=== PATIENT | female | born 1940 | race Caucasian/White ===

== ENCOUNTER 2024-11-28 10:30 | Inpatient (IN) | payer MEDICARE, MEDICAID, SELFPAY ==
[2024-11-28] VITALS (12 sets, daily range): BP systolic 91–157; BP diastolic 50–88; PULSE 61–107; RESP 16–20; TEMP 36.4–36.8; O2SAT 94–99; BMI 20.6
--- NOTE | 2024-11-28 10:48 | EDNOTE_ITS ---
ED General RME/HPI General Chief complaint: General Adult/Misc Complain Stated complaint: EVALUATION; UNDER CONSERVATORSHIP Time Seen by Provider: 11/28/24 11:03 Arrival date/time: 11/28/24 10:30 RME / HPI RME / HPI narrative: 84 year old female present to the ED BIBA from home for evaluation. Per medics, neighbors were at patients residence and noted her home was in disarray. Reportedly while cleaning out the moldy food from the patients home, the patient went out and ate it from the trash can. While in the ED patient has no complaints and notes I don't know why they brought me here . Denies fever, chills, sweating. Denies chest pain, cough, shortness of breath. Denies nausea, vomiting, diarrhea, constipation. Denies dysuria, urinary frequency and urgency. Related Data Home Medications ?Medication ?Instructions ?Recorded ?Confirmed calcium 600 mg (as 1 tab PO QDAY 01/18/19 11/30/24 carbonate)-vitamin D3 20 mcg (800 unit) tablet (Caltrate with Vitamin D3) [id number] 8 mg-folic 400 1 tab PO QDAY 01/18/19 11/30/24 mcg-K 50 mcg-lutein 300 mcg tablet (Centrum Silver Women) Previous Rx's ?Medication ?Instructions ?Recorded potassium chloride 8 mEq 8 meq PO QDAY #14 caps 05/10/24 capsule,extended release loperamide 1 mg/7.5 mL oral liquid 2 mg (15 mL) PO Q2H PRN loose 06/13/24 (Imodium A-D) stool #120 mL loperamide 2 mg capsule (Imodium 2 mg PO Q6H PRN loose stool #14 06/18/24 A-D) caps Allergies Allergy/AdvReac Type Severity Reaction Status Date / Time Coos And Derivatives Allergy Severe Hives Verified 06/18/24 16:37 isopropyl alcohol Allergy Severe Unconscious Verified 06/18/24 16:37 nut - unspecified Allergy Severe CLOSE UP Verified 06/18/24 16:37 THROAT strawberry Allergy Severe Hives Verified 06/18/24 16:37 tetracycline Allergy Severe Hives Verified 06/18/24 16:37 Review of Systems Review of Systems Narrative Review of Systems: GEN: No fever, no chills, no weight loss EYES: No discharge, no visual changes, no pain HEENT: No ear pain, no congestion, no sore throat PULM: No shortness of breath, no cough, no congestion CV: No chest pain, no dyspnea on exertion, no palpitations GI: No nausea, no vomiting, no diarrhea, no pain, no constipation : No frequency, no urgency, no dysuria MUSC/SKEL: No joint pain, no back pain SKIN: No rash PSYCH: No hallucinations, no depression HEME/LYMPH: No easy bleeding or bruising tendencies NEURO: No weakness, no headache Past Medical History Past Medical History NEUROLOGIC: Positive Seizures CARDIAC: Negative Cardiac Disorders or Congestive Heart Failure RESPIRATORY: Positive Asthma GASTROINTESTINAL: Positive Gastrointestinal Disorders, Gastrointestinal Bleed and Ulcer GENITOURINARY: Negative Genitourinary Disorders or Renal Disease REPRODUCTIVE: Positive Previous Pregnancies MUSCULOSKELETAL: Positive Musculoskeletal Disorders, Osteoporosis and Fractures ENT: Positive Cataracts ENDOCRINE: Negative Endocrine Disorders, Diabetes Mellitus Type 1 or Diabetes Mellitus Type 2 HEMATOLOGIC: Negative Blood Disorders or Sickle Cell Disease OTHER HISTORY: Positive Falls and Chicken Pox Family History FAMILY HISTORY: Positive Family Surgery Surgical History SURGICAL: Positive Open Reduction Internal Fixation and Hysterectomy Social History SMOKING STATUS: Never smoker SUBSTANCE USE: does not use ED Exam Narrative Physical exam: GENERAL APPEARANCE:? alert and oriented x 4, well-developed, well-nourished, no acute distress HEENT: normocephalic, atraumatic NECK: supple LUNGS: no respiratory distress, normal effort HEART: good peripheral perfusion ABDOMEN: non distended EXTREMITIES:? atraumatic NEUROLOGIC: awake; alert and oriented x4; cranial nerves II-XII grossly intact PSYCHIATRIC:? appropriate mood and affect SKIN: warm, dry, normal color; no rashes Course Course Course Narrative: 1045: glass bead maker reports the patient is conserved by the [facility] and the [facility] have made contact with our social media editor. They are requesting the patient be placed into a nursing facility. 1800: Patient was signed out to Dr. Hoyt. Past medical, surgical, social and family history reviewed. Vitals and home medications reviewed. Results and treatment plan discussed. They will assume the care of the patient at this time and will follow the patient. Quality Measures none Orders Category Date Time Status Diet Regular Diet 11/29/24 Dinner Completed Diet Regular Diet 12/01/24 Breakfast Active CBC Stat Lab 11/28/24 11:55 Completed CMP [Comprehensive Metabolic Panel] Stat Lab 11/28/24 11:55 Completed TSH [Thyroid Stimulating Hormone] Stat Lab 11/28/24 11:55 Completed UA, C/S IF [Urinalysis, C/S if Indicated] Stat Lab 11/28/24 12:51 Completed Vital Signs Vital signs: Vital Signs Temperature 97.5 F 11/28/24 10:33 Pulse Rate 86 11/28/24 10:33 Respiratory Rate 19 11/28/24 10:33 Blood Pressure 157/87 H 11/28/24 10:33 Pulse Oximetry (%) 98 11/28/24 10:33 Oxygen Delivery Method Room Air 11/28/24 10:33 Pulse ox is 98% on room air which is adequate. [facility] Patient data External records reviewed:: [facility] previous records (I reviewed ED visit on 07/31/2024) and EMS form Clinical information provided by:: patient and EMS Social determinants that could affect healthcare access:: none Patient has the following chronic illnesses:: Osteoporosis How is presenting disease/condition affected by chronic disease/condition?: u neffected by Evaluation data The following diagnostics were reviewed and interpreted by me:: lab results Lab and/or radiology exams considered but not ordered:: None Interpretation Summary: UA shows no infection CMP within normal limits CBC within normal limits Medications Medications considered but not ordered:: None Medication administrations:: see above if any Consultations Consultation(s) initiated? (list below): No Diagnosis Differential Diagnosis ED Complaint MDM: Encounter for medical screening exam, anemia, dehydration Most likely diagnosis given after review of the tests above:: As noted below. Admission Indicated Admission indicated?: not indicated Explain why admission is indicated or not indicated:: No final disposition plan at this time, still pending diagnostic tests. Patient signout to the night time nanny provider. Admission Request Was there a request for admission?: No Disposition Plan Disposition Plan: other (specify) (Patient signout to the night time nanny provider. ) Medical Decision Making Differential Diagnosis Differential Diagnosis: Encounter for medical screening exam, anemia, dehydration Lab Data 11/28/24 11:55 11/28/24 11:55 Labs: Lab Results 11/28/24 11/28/24 Range/Units 11:55 12:51 WBC 5.9 (3.6-11.0) Thou/mm3 RBC 5.15 (4.00-5.20) Miln/mm3 Hgb 15.3 (12.0-16.0) g/dL Hct 44.8 (36.0-46.0) % MCV 87 (80-100) fL MCH 29.7 (25.0-35.0) pg MCHC 34.2 (31.0-37.0) g/dl RDW Std Deviation 41.1 (36.4-46.3) fL Plt Count 176 (140-440) Thou/mm3 Neut % (Auto) 66 (37-80) % Lymph % (Auto) 22 (10-50) % Trinity % (Auto) 8 (0-12) % Eos % (Auto) 4 (0-10) % Baso % (Auto) 1 (0-2.5) % Neut # (Auto) 3.9 (1.8-7.7) Thou/mm3 Lymph # (Auto) 1.3 (1.0-4.8) Thou/mm3 Trinity # (Auto) 0.5 (0.0-0.8) Thou/mm3 Eos # (Auto) 0.2 (0.0-0.5) Thou/mm3 Baso # (Auto) 0.0 (0.0-0.2) Thou/mm3 Immature Gran # (Auto) 0.00 (0.00-0.00) Thou/mm3 Absolute Nucleated RBC 0.00 (0.00-0.00) Thou/mm3 Immature Gran % 0 (0-0) % Nucleated RBC % 0 (0) /100 WBC Sodium 140 (136-145) mMol/L Potassium 4.2 (3.4-5.1) mMol/L Chloride 105 (98-107) mMol/L Carbon Dioxide 27.0 (20.0-31.0) mMol/L Anion Gap 8 (7-16) BUN 15 (9-23) mg/dL Creatinine 1.0 (0.6-1.3) mg/dL Estim Creat Clear Calc 39.7 L (>60) mL/min eGFR 56 L (60 - ) See Note BUN/Creatinine Ratio 15 (12-20) Ratio Glucose 112 H (74-106) mg/dL Calculated Osmolality 281 (275-295) Calcium 10.2 (8.3-10.6) mg/dL Corrected Calcium 10.2 H (8.5-10.1) mg/dL Total Bilirubin 0.5 (0.3-1.2) mg/dL AST 25 (0-34) U/L ALT 12 (10-49) U/L Alkaline Phosphatase 81 (46-116) U/L Total Protein 6.7 (5.7-8.2) gm/dL Albumin 4.1 (3.4-4.8) gm/dL Globulin 2.6 (2.3-3.5) gm/dL Albumin/Globulin Ratio 1.6 (1.2-2.2) TSH 1.82 (0.55-4.78) uIU/mL Ur Collection Type Clean Catch Urine Color Colorless A (Lt Yel-Yel) Urine Clarity Clear (Clear/Hazy) Urine pH 6.0 (5.0-7.0) Ur Specific [place] 1.008 (1.001-1.035) Urine Protein Negative (Neg - Trace) Urine Glucose (UA) Negative (Negative) Urine Ketones Negative (Negative) Urine Blood Negative (Negative) Urine Nitrite Negative (Negative) Urine Bilirubin Negative (Negative) Urine Urobilinogen (Auto) Negative (0.0-1.0) mg/dL Ur Leukocyte Esterase Negative (Negative) Urine RBC 1 (0-3) /hpf Urine WBC 1 (0-5) /hpf Ur Squamous Epith Cells < 1 (0-5) /hpf Urine Bacteria None (None) Ur Culture Indicated? Not Indicated Discharge Plan Prescriptions/Referrals Prescriptions/Med Rec: No Action Centrum Silver Women 8 mg iron-400 mcg-300 mcg Tablet 1 tab PO QDAY calcium carbonate-vitamin D3 [Caltrate with Vitamin D3] 600 mg(1,500mg) -800 unit Tablet 1 tab PO QDAY potassium chloride 8 mEq capsule, extended release 8 meq PO QDAY Qty: 14 0RF loperamide [Imodium A-D] 1 mg/7.5 mL liquid 2 mg PO Q2H PRN (Reason: loose stool) Qty: 120 0RF Rx Instructions: do not exceed 16 mg per 24 hrs loperamide [Imodium A-D] 2 mg capsule 2 mg PO Q6H PRN (Reason: loose stool) Qty: 14 0RF Referrals: Eddi Paulson MD [Primary Care Provider] - In 1 week Patient/Caregiver Discharge Instructions Print Language: Stateless
--- NOTE | 2024-11-28 10:53 | PC.CC ---
Addendum entered by Jacqueline Doherty 11/29/24 10:42: Jayashree Man sent a referral to the following SNF: [facility] [place] [facility] [place] at [facility] Care Feliberto Garcia Addendum entered by Jacqueline Doherty 11/29/24 08:20: [id number] Jacqueline VAZQUEZ spoke to fernando and informed her that we have been unsuccessful in finding SNF placement for the patient. Jayashree reported she will be working on their search today and including me in the emails to different facilities. Addendum entered by Jacqueline Doherty 11/28/24 16:48: 1648 [facility] is considering patient pending insurance authorization. Addendum entered by Jacqueline Doherty 11/28/24 13:56: 1342 submitted referral via [facility] to SNF in and out of area for placement. Addendum entered by Jacqueline Doherty 11/28/24 12:02: 12:03 Jacqueline VAZQUEZ spoke with Jayashree king who reports we can place patient at any SNF but they would like to be notified where the patient is placed. Original Note: Patient was BIBA from home is conserved by [facility]-Conservator is Jayashree [phone]. Patient's primary care provider is Dr. Francois, per APS patient is not on any medications. [facility] Conservator reports the patient's dementia has progressed and would like for patient to be placed at a Prison Facility.
[2024-11-28 12:07] LABS: Basophils % (Auto) 1 % (0-2.5); Eosinophils # (Auto) 0.2 Thou/mm3 (0.0-0.5); Eosinophils % (Auto) 4 % (0-10); Hematocrit 44.8 % (36.0-46.0); Hemoglobin 15.3 g/dL (12.0-16.0); Immature Granulocytes % (Auto) 0 % (0-0); Lymphocytes # (Auto) 1.3 Thou/mm3 (1.0-4.8); Lymphocytes % (Auto) 22 % (10-50); Mean Corpuscular HGB Conc 34.2 g/dl (31.0-37.0); Mean Corpuscular Hemoglobin 29.7 pg (25.0-35.0); Mean Corpuscular Volume 87 fL (80-100); Monocytes # (Auto) 0.5 Thou/mm3 (0.0-0.8); Monocytes % (Auto) 8 % (0-12); Neutrophils # (Auto) 3.9 Thou/mm3 (1.8-7.7); Neutrophils % (Auto) 66 % (37-80); Nucleated Red Blood Cell % 0 /100 WBC (0); Platelet Count 176 Thou/mm3 (140-440); RDW Standard Deviation 41.1 fL (36.4-46.3); Red Blood Count 5.15 Miln/mm3 (4.00-5.20); White Blood Count 5.9 Thou/mm3 (3.6-11.0)
[2024-11-28 12:27] LABS: Alanine Aminotransferase 12 U/L (10-49); Albumin, Serum 4.1 gm/dL (3.4-4.8); Albumin/Globulin Ratio 1.6 (1.2-2.2); Alkaline Phosphatase 81 U/L (46-116); Anion Gap 8 (7-16); Aspartate Amino Transferase 25 U/L (0-34); BUN/Creatinine Ratio 15 Ratio (12-20); Bilirubin,Total 0.5 mg/dL (0.3-1.2); Blood Urea Nitrogen 15 mg/dL (9-23); Calcium 10.2 mg/dL (8.3-10.6); Calcium (Corrected) 10.2 mg/dL (8.5-10.1); Chloride 105 mMol/L (98-107); Estimated Creatinine Clearance 39.7 mL/min (>60); Globulin 2.6 gm/dL (2.3-3.5); Glucose 112 mg/dL (74-106); Osmolality,Calculated 281 (275-295); Potassium 4.2 mMol/L (3.4-5.1); Sodium 140 mMol/L (136-145); Thyroid Stimulating Hormone 1.82 uIU/mL (0.55-4.78); Total Protein 6.7 gm/dL (5.7-8.2); eGFR 56 See Note
[2024-11-28 13:02] LABS: Collection Type, Urine Clean Catch
[2024-11-28 13:13] LABS: Bilirubin,Urine Negative (Negative); Blood,Urine Negative (Negative); Clarity,Urine Clear (Clear/Hazy); Color,Urine Colorless (Lt Yel-Yel); Culture Indicated,Urine Not Indicated; Glucose, Urine Negative (Negative); Ketones,Urine Negative (Negative); Leukocyte Esterase,Urine Negative (Negative); Nitrite,Urine Negative (Negative); Protein,Urine Negative (Neg - Trace); RBC,Urine 1 /hpf (0-3); Specific Gravity,Urine 1.008 (1.001-1.035); Squamous Epithelial Cell,Urine < 1 /hpf (0-5); Urobilinogen,Urine Negative mg/dL (0.0-1.0); WBC,Urine 1 /hpf (0-5)
--- NOTE | 2024-11-28 20:00 | PC.NURSE ---
Pt given a sandwch chips and water. Pt calm and cooperative. will monitor ppt for needs as needed.
--- NOTE | 2024-11-28 20:54 | PD.EDADDENDU ---
Emergency Room Addendum <Shraddha French - Last Filed: 11/28/24 22:06> Addendum Narrative: 1800: Care assumed from Dr. Singleton, the previous shift emergency physician. Past medical, surgical, social and family history reviewed. Vitals and home medications reviewed. I will assume the care of the patient at this time. Please refer to the emergency department record for history and examination from initial visit.? Physical exam by me shows patient under no acute distress at this time. 0600: Patient was signed out to Dr. Singleton. Past medical, surgical, social and family history reviewed. Vitals and home medications reviewed. Results and treatment plan discussed. They will assume the care of the patient at this time and will follow the patient. <Elizabethmane Anne - Last Filed: 11/29/24 04:17> Addendum Narrative: 1800: Care assumed from Dr. Singleton, the previous shift emergency physician. Past medical, surgical, social and family history reviewed. Vitals and home medications reviewed. I will assume the care of the patient at this time. Please refer to the emergency department record for history and examination from initial visit.? Physical exam by me shows patient under no acute distress at this time. OBSERVATION NOTE: The patient was placed in ED observation care at 11/28/24 at 1800 hours. The patient was placed in ED observation care because of pending SNF placement. The patients past medical history, social history, and family history were reviewed. The plan of care will include serial examinations. 0600: Patient was signed out to Dr. Singleton. Past medical, surgical, social and family history reviewed. Vitals and home medications reviewed. Results and treatment plan discussed. They will assume the care of the patient at this time and will follow the patient. At this time, observation has ended.
[2024-11-29] VITALS (18 sets, daily range): BP systolic 103–138; BP diastolic 56–93; PULSE 55–94; RESP 16–18; TEMP 36.3–36.8; O2SAT 95–97
--- NOTE | 2024-11-29 05:58 | EDNOTE_ITS ---
Emergency Room Addendum Addendum Narrative: 0600: Care assumed from Dr. Hoyt, the previous shift emergency physician. Past medical, surgical, social and family history reviewed. Vitals and home medications reviewed. I will assume the care of the patient at this time, pending SNF placement. Please refer to the emergency department record for history and examination from initial visit.? The patient was placed in ED observation care at 11/29/2024 at 0600 hours. The patient was placed in ED observation care, pending long-term placement. The patients past medical history, social history, and family history were reviewed. The plan of care will include serial examinations. Physical exam by me shows patient under no acute distress at this time. 1800: Patient was signed out to Dr. Whyte. Past medical, surgical, social and family history reviewed. Vitals and home medications reviewed. Results and treatment plan discussed. They will assume the care of the patient at this time and will follow the patient, pending SNF placement.
--- NOTE | 2024-11-29 18:02 | PD.EDADDENDU ---
Emergency Room Addendum Addendum Narrative: 1800: Care assumed from Dr. Singleton the previous shift emergency physician. Past medical, surgical, social and family history reviewed. Vitals and home medications reviewed. Results and treatment plan discussed. I will assume the care of the patient at this time and will follow the patient, pending SNF placement. Please refer to the emergency department record for history and examination from initial visit. The patient was placed in ED observation care at 11/29/24 at 1800 hours. The patient was placed in ED observation care because of pending authorization for SNF placement. The patients past medical history, social history, and family history were reviewed. 0600: Care signed out to Dr. Singleton (emergency physician). Past medical, surgical, social and family history reviewed. Vitals and home medications reviewed. Results and treatment plan discussed. They will assume the care of the patient at this time and will follow the patient, pending SNF placement. At this time, observation has ended.
--- NOTE | 2024-11-29 19:39 | PC.NURSE ---
First contact with pt in Room 5, pt in gown, connected to bedside monitoring coordinator, whiteboard updated, call light within reach.
--- NOTE | 2024-11-29 19:42 | PC.NURSE ---
Pt provided with a dinner tray, observed feeding self independently.
[2024-11-30] VITALS (10 sets, daily range): BP systolic 103–143; BP diastolic 56–94; PULSE 61–90; RESP 14–17; TEMP 36.6–37.2; O2SAT 95–97
--- NOTE | 2024-11-30 06:01 | PD.EDADDENDU ---
Emergency Room Addendum Addendum Narrative: 0600: Care assumed from Dr. Whyte, the previous shift emergency physician. Past medical, surgical, social and family history reviewed. Vitals and home medications reviewed. I will assume the care of the patient at this time, pending SNF placement. The patient was placed in ED observation care at 11/30/2024 at 0600 hours. The patient was placed in ED observation care, pending SNF placement. The patients past medical history, social history, and family history were reviewed. The plan of care will include serial examinations. Please refer to the emergency department record for history and examination.? While in ED observation the patient will have access to water, food, and personal hygiene. If the patient takes home medication(s), they will be continued in ED observation. Physical exam by me shows patient under no acute distress at this time. 1800: Patient was signed out to Dr. Whyte. Past medical, surgical, social and family history reviewed. Vitals and home medications reviewed. Results and treatment plan discussed. They will assume the care of the patient at this time and will follow the patient, pending placement.
--- NOTE | 2024-11-30 08:41 | PC.NURSE ---
Avasure placed at bedside to monitor pt for pt safety
--- NOTE | 2024-11-30 13:30 | PC.NURSE ---
pt given lunch tray; pt ate 100% of lunch tray.
--- NOTE | 2024-11-30 16:19 | PC.NURSE ---
SKIN CHECK DONE ON PT; NO PRESSURE INJURY NOTED ON ANY BONY PROMINENCES ON PT.
--- NOTE | 2024-11-30 18:31 | PD.EDADDENDU ---
Emergency Room Addendum <Casimiro Whyte MD - Last Filed: 11/30/24 18:31> Addendum Narrative: 1800 Care assumed by previous shift provider. Past medical, surgical, social and family history reviewed. Vitals and home medications reviewed. Results and treatment plan discussed. I will assume the care of the patient at this time and will follow the patient, pending final disposition. <Patrick Wong - Last Filed: 12/01/24 04:54> Addendum Narrative: 1800 Care assumed by previous shift provider. Past medical, surgical, social and family history reviewed. Vitals and home medications reviewed. Results and treatment plan discussed. I will assume the care of the patient at this time and will follow the patient, pending final disposition. 0000 Patient re-evaluated by me. Vitals reviewed. Stable. 0400 Patient re-evaluated by me. Vitals reviewed. Stable. 0600 Care signed out to Dr. Morris. Past medical, surgical, social and family history reviewed. Vitals and home medications reviewed. Results and treatment plan discussed. They will assume the care of the patient at this time and will follow the patient, pending SNF placement.
--- NOTE | 2024-11-30 22:36 | PC.NURSE ---
Pt resting quietly since my arrival. conversing and joking around. pt offered and given pudding, milk and crackers. [employer] monitor is in room for safty observation.
[2024-12-01] VITALS (9 sets, daily range): BP systolic 92–132; BP diastolic 51–75; PULSE 64–83; RESP 15–18; TEMP 36.6–36.8; O2SAT 92–99
--- NOTE | 2024-12-01 06:22 | PC.NURSE ---
PT SLEPT THROUGHOUT THE NIGHT WITH NO INCIDENTS. ATTEMPTED TO CHANGE PTS BRIEF OR AMBULATE TO BATHROOM THIS AM BUT PATIENT DENIED. PT CONTINUING WITH [employer] MONITOR TO ENSURE PATIENT SAFETY. STILL AWAITING FOR INSURANCE AUTH FOR SNF PLACEMENT. WILL CONTINUE WITH PLAN OF CARE.
--- NOTE | 2024-12-01 07:44 | PD.EDADDENDU ---
Emergency Room Addendum Addendum Narrative: 0600: Care assumed from Dr. Whyte, the previous shift emergency physician. Past medical, surgical, social and family history reviewed. Vitals and home medications reviewed. I will assume the care of the patient at this time, pending SNF placement. The patient was placed in ED observation care at 12/01/2024 at 0600 hours. The patient was placed in ED observation care, pending SNF placement. The patients past medical history, social history, and family history were reviewed. The plan of care will include serial examinations. Please refer to the emergency department record for history and examination.? While in ED observation the patient will have access to water, food, and personal hygiene. If the patient takes home medication(s), they will be continued in ED observation. Physical exam by me shows patient under no acute distress at this time. 1800: Patient was signed out to Dr. Whyte. Past medical, surgical, social and family history reviewed. Vitals and home medications reviewed. Results and treatment plan discussed. They will assume the care of the patient at this time and will follow the patient, pending SNF placement.
--- NOTE | 2024-12-01 08:59 | PC.CC ---
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 From SS notes, pt is conserved by [facility]-pt with hx of advance dementia. Pts home has been condemned by [facility] as unlivable. Inquiry has been uploaded to [employer] with the following outcome: [facility] declined no bed available [facility]-considering, though pt lacks firm D/c plan [facility]-no response [facility]-no response [facility] [place]-declined [facility]-no response [facility]-declined, unable to meet needs [facility]-declined [facility]-declined [facility]-no response [facility] [place]-declined [place]-no response [place]-no response [place]-no response [facility] [place]-no response [place]-no response [facility]-no response Ravi--no response [address]-no response [facility] response [facility]-declined [place] [facility]-declined [facility]-no response [facility]-no response [facility]-declined [facility] [place]-no response [facility]-no response [facility]-no response [place]-no response [facility] [place]-no response [place]-has accepted pending 3 midnight stay [place]-declined [place]-declined [facility]-no response [employer]-no response [facility]-declined [facility] [place]-declined [place]- no response [place]-no response [facility]-no response [facility]-no response [place]-no response [place]-no response [facility]-no response [facility]-no response Juan Starks [facility]-declined [facility]-declined [place]-declined [facility]-declined [facility]-no response [facility]-declined [place]-declined [place]-declined [facility]-declined Jackie PA-declined [place]-declined [place]-no response [facility]-considering
--- NOTE | 2024-12-01 09:00 | PC.NURSE ---
pt resting in bed in no apparent distress at this time. pt denies pain or discomfort. will continue to monitor
--- NOTE | 2024-12-01 17:06 | PC.NURSE ---
PATIENT RESTING IN BED, DENIES PAIN OR DISCOMFORT. PATIENT STATES SHE IS OKAY AND DOES NOT NEED ANYTHING AT THIS TIME.
--- NOTE | 2024-12-01 18:20 | PC.NURSE ---
PATIENT ASSISTED TO RESTROOM, PATIENT AMBULATING WITH USE OF CANE AND ONE PERSON ASSIST.
--- NOTE | 2024-12-01 22:11 | PD.EDADDENDU ---
Emergency Room Addendum Addendum Narrative: 1800: Care assumed from Dr. Morris, the previous shift emergency physician. Past medical, surgical, social and family history reviewed. Vitals and home medications reviewed. I will assume the care of the patient at this time, pending SNF placement. The patient continues in ED observation care. The patient was placed in ED observation care, pending SNF placement. The patients past medical history, social history, and family history were reviewed. The plan of care will include serial examinations. Please refer to the initial emergency department record for history and examination. While in ED observation the patient will have access to water, food, and personal hygiene. If the patient takes home medication(s), they will be continued in ED observation. Physical exam by me shows patient under no acute distress at this time. I discussed this case with social human services assistants. They continue to wait for insurance authorization for SNF. Patient has been in ED >80 hours. If patient is unable to be placed, she will be a social admission. 0600: Patient was signed out to Dr. Morris. Past medical, surgical, social and family history reviewed. Vitals and home medications reviewed. Results and treatment plan discussed. They will assume the care of the patient at this time and will follow the patient, pending SNF placement. MD Attestation Attestation Scribe Attestation: I, Elier Wong, am scribing for and in the presence of Dr. Whyte. Provider Notation: Although this document has been carefully reviewed, there may still be some phonetic and other typographical errors. These errors are purely grammatical due to imperfections in the software program and should not be construed in any way to compromise the substance of the patient's medical care during this visit.
[2024-12-02] VITALS (8 sets, daily range): BP systolic 109–132; BP diastolic 57–71; PULSE 60–80; RESP 15–18; TEMP 36.8–37.1; O2SAT 95
--- NOTE | 2024-12-02 07:01 | EDNOTE_ITS ---
Emergency Room Addendum <Trish Hernandez - Last Filed: 12/02/24 07:02> Addendum Narrative: 0600: Care assumed from Dr. Whyte, the previous shift emergency physician. Past medical, surgical, social and family history reviewed. Vitals and home medications reviewed. I will assume the care of the patient at this time, pending SNF placement. Please refer to the emergency department record for history and examination from initial visit.? Nursing notes reviewed by me. Vital signs reviewed by me. [facility] medical records reviewed by me. <Skinny Morris MD - Last Filed: 12/02/24 18:10> Addendum Narrative: 0600: Care assumed from Dr. Whyte, the previous shift emergency physician. Past medical, surgical, social and family history reviewed. Vitals and home medica tions reviewed. I will assume the care of the patient at this time, pending SNF placement. Please refer to the emergency department record for history and examination from initial visit.? Nursing notes reviewed by me. Vital signs reviewed by me. [facility] medical records reviewed by me. 6 PM, the patient is still pending penitentiary transfer success, the patient is stable and is signed out to Dr. Hoyt
--- NOTE | 2024-12-02 07:06 | PC.NURSE ---
Received report from Choco CARRILLO and assumed care of patient. Patient sleeping at this time and appears to be in no distress.
--- NOTE | 2024-12-02 08:00 | PC.NURSE ---
BREAKFAST TRAY GIVEN
--- NOTE | 2024-12-02 08:08 | PC.CC ---
Addendum entered by Connor Parrish II 12/02/24 12:47: ASW met with pt at bedside, introducing self and role in pt care. At time of encounter pt appeared confused, and was trying to contact her local [facility] for a visitor/prayer request. Pt is alert and oriented to circumstances that lead her to being transported to ED. Pt is aware that she is pending placement in a skilled setting, as roasterman request. Pt noted to ask several times why she is unable to return home. Pt is unable to identify any family. Pt reports her late husbands children do not want anything to do with her. Per pt her brother in law lives in [place] but does not know his contact information. Pt is noted to be pleasant during encounter. Pt is easily engaged. Addendum entered by Connor Parrish II 12/02/24 11:27: 1028-Message left for [employer] [facility], ASW requested call back for further details on pts conservatorship. Original Note: Pt Usha Aldana is an 84 yr old female holding in ED for SNF placement. Pt is conserved through [facility]. Plan is for ASW to follow up with [employer] for progress on their search for placement and to inquire if in agreement to place pt out of area. ASW will follow up with local facilities to confirm availability of bed, and if able to meet pts needs.
--- NOTE | 2024-12-02 17:55 | PC.CC ---
[facility]-declined [facility]-ASW spoke with Lety-not contracted with [facility] for correction care. [facility]-ASW spoke with Oswaldo with admissions request packet be faxed to [phone]. 1616-Call from Oswaldo with [facility]-able to accept pt for admission 12/03/24. [facility]-ASW spoke with Jerry in admissions request packet to be faxed to [phone]. 2610-Call from Jerry with [facility] able to accept, request follow up once ASW speaks with conservator. [facility]-ASW spoke with [facility] with admissions/no female beds available. [facility]-ASW spoke with Joe with admissions, who states she will follow up with administration, if facility is able to accept. [facility]-declined no beds.
--- NOTE | 2024-12-02 18:13 | EDNOTE_ITS ---
Emergency Room Addendum <Shraddha French - Last Filed: 12/02/24 22:12> Addendum Narrative: 1800: Care assumed from Dr. Morris, the previous shift emergency physician. Past medical, surgical, social and family history reviewed. Vitals and home medications reviewed. I will assume the care of the patient at this time, pending SNF placement. The patient was placed in ED observation care at 12/02/2024 at 1800 hours. The patient was placed in ED observation care, pending SNF placement. The patients past medical history, social history, and family history were reviewed. The plan of care will include serial examinations. Please refer to the emergency department record for history and examination.? While in ED observation the patient will have access to water, food, and personal hygiene. If the patient takes home medication(s), they will be continued in ED observation. Physical exam by me shows patient under no acute distress at this time. 0600: Patient was signed out to Dr. Stevens. Past medical, surgical, social and family history reviewed. Vitals and home medications reviewed. Results and treatment plan discussed. They will assume the care of the patient at this time and will follow the patient, pending SNF placement. <Elizabeth Anne - Last Filed: 12/03/24 06:05> Addendum Narrative: 1800: Care assumed from Dr. Morris, the previous shift emergency physician. Past medical, surgical, social and family history reviewed. Vitals and home medications reviewed. I will assume the care of the patient at this time, pend ing SNF placement. The patient was placed in ED observation care at 12/02/2024 at 1800 hours. The patient was placed in ED observation care, pending SNF placement. The patients past medical history, social history, and family history were reviewed. The plan of care will include serial examinations. Please refer to the emergency department record for history and examination.? While in ED observation the patient will have access to water, food, and personal hygiene. If the patient takes home medication(s), they will be continued in ED observation. I spoke with the social sciences chair, who states the patient has been accepted to a SNF in [place], but they are awaiting confirmation by the patient's family due to the facility being out of county. Physical exam by me shows patient under no acute distress at this time. 0600: Patient was signed out to Dr. Stevens. Past medical, surgical, social and family history reviewed. Vitals and home medications reviewed. Results and treatment plan discussed. They will assume the care of the patient at this time and will follow the patient, pending SNF placement. At this time, observation has ended.
[2024-12-03] VITALS (9 sets, daily range): BP systolic 106–157; BP diastolic 56–92; PULSE 58–91; RESP 16–18; TEMP 36.4–37.2; O2SAT 95–96; BMI 20.2
--- NOTE | 2024-12-03 04:06 | PC.NURSE ---
brief change, shana care done,linen change. pt refused oral care. clothes and shoes in belongings bag on/behind gurney. purse in bed, under blankets with pt.
--- NOTE | 2024-12-03 09:39 | PC.CC ---
Pt Usha Aldana is an 84 yr old female holding in ED for placement in SNF. Pt conserved by [facility] [employer]. Request for terminal superintendent placement has been initiated. Pt has been tentatively accepted to [facility] and [facility] in [facility]. 728-ASW spoke with Sharmila with [facility] [employer]. ASW provided update that pt has been accepted to out of county by 2 facilities, and ED staff will need approval by [employer] to secure placement. Sharmila states she will call ASW back once she is able to speak with non destructive testing supervisor. 743-Call back from Sharmila, pt is unable to leave the county. Sharmila request that clinical packet be faxed to [employer] for support in securing local placement. ASW explained that pt has been holding in ED for over 100 hours and though pt is safe this is not an appropriate setting for pt to remain. Case status has been consulted with Care Magnetic Tester Erendira Bush. Plan is for ASW to continue to contact local facilities for possible placement. 921-Call from Celestino with [facility], ASW provided update, that [facility] did not approve placement. 934-Call to Jerry with [facility] to provide update that [facility] did not approve placement out of county. Per Jerry if placement cannot be secured and [facility] approves [facility] is willing to consider pt for placement.
--- NOTE | 2024-12-03 09:55 | EDNOTE_ITS ---
Emergency Room Addendum <Trish Hernandez - Last Filed: 12/03/24 16:53> Addendum Narrative: 0600: Care assumed from Dr. Hoyt, the previous shift emergency physician. Past medical, surgical, social and family history reviewed. Vitals and home medications reviewed. I will assume the care of the patient at this time, pending SNF placement. Please refer to the emergency department record for history and examination from initial visit.? Nursing notes reviewed by me. Vital signs reviewed by me. [facility] reviewed by me. Patient has remained stable through ED course, no complaints reported. I spoke with hospitalist Dr. Lemus regarding admission. Discussed patients PMHx, HPI, ED course, exam findings, labs results. The hospitalist agree to accept the patient for admission. <Juan Stevens MD - Last Filed: 12/03/24 18:03> Addendum Narrative: 0600: Care assumed from Dr. Hoyt, the previous shift emergency physician. Past medical, surgical, social and family history reviewed. Vitals and home medications reviewed. I will assume the care of the patient at this time, pending SNF placement. Please refer to the emergency department record for history and examination from initial visit.? Nursing notes reviewed by me. Vital signs reviewed by me. [facility] records reviewed by me. Patient has remained stable through ED course, no complaints reported. I spoke with hospitalist Dr. Lemus regarding admission. Discussed patients PMHx, HPI, ED course, exam findings, labs results. The hospitalist agree to accept the patient for admission. No home health care social worker spoke with Marjan hahn about social admit as there is no endpoint to this patient's disposition.
--- NOTE | 2024-12-03 12:07 | PC.CC ---
LEAD RECOVERER spoke with Ursula, [employer] overseen Guardianship. Ursula was made aware that placement has been found out of [facility]. Ursula reports that she is not able to carlyn placement out of [facility] to the court not being in agreement with the placement out of [facility]. Ursula was explained the admission criteria and medicare guidelines for SNF placement. LEAD RECOVERER inquired about the efforts that have been made to place the patient up until this event as LEAD RECOVERER was informed that the patient's home was condemned for unsuitable living conditions. LEAD RECOVERER was made aware at the patient refused caregivers and was found eating uneatable food. LEAD RECOVERER inquired about the placement efforts. Ursula reports that placement has not been found, unclear what efforts were made and when they were initiated.
--- NOTE | 2024-12-03 16:54 | PD.RESHP ---
Documentation for date of: 12/03/24 HPI History of Present Illness Chief complaint: Altered mental status History of present illness: 84-year-old female with past medical history of asthma presented to the ED for social placement. Patient has been in the ED for approximately 5 days pending placement. Per report patient's house was found in unlivable conditions neighbors found the patient eating food from the trash. Patient states no active complaints at this time, she does not know why she is here. Patient is here for social placement was found facility however [facility] denied facility as it has to be within the [facility]. Denies headache, nausea, vomiting, shortness of breath, chest pain, abdominal pain, swelling of the extremities. ED course: Vitals on arrival are stable, labs unremarkable. PMHx: Asthma SX Hx: Hysterectomy Social Hx: Denies smoking, denies alcohol use, denies illicit substances including THC F Hx: Unknown Review of Systems Review of Systems Narrative Review of Systems: Narrative ROS GENERAL: Denies fevers/chills or diaphoresis. HEENT: Denies headache or visual/hearing changes. Denies nasal discharge. NEURO: Denies unusual weakness or difficulty speaking. CARDIO: Denies chest pain or palpitations. PULM: Denies SOB, coughing, or wheezing. GI: Denies abdominal pain, N/V/C/D/reflux/gas, bright red blood per rectum or melena. Reports having BMs. URO: Denies burning/itching/pain/urinary changes. LOG CHAIN WORKER: Denies menstrual changes, hot flashes. MSK/EXT/SKIN: Denies joint/skeletal/muscle pain, issues/changes in upper or lower extremities, itchiness, or superficial pain. PSYCH: Cooperative, pleasant mood & affect. The rest of the review of systems is otherwise negative. Exam Vital Signs Temp Pulse Resp BP Pulse Ox O2 Del Method 97.5 F 71 16 134/91 H 95 Room Air 12/03/24 16:11 12/03/24 16:11 12/03/24 16:11 12/03/24 16:11 12/03/24 16:11 12/03/24 16:11 Narrative Exam Physical Exam GENERAL: NAD, AAOx3, frail HEENT: Moist mucosa. Eyes open, symmetrical, & clear CARDIO: Heart RRR, no obvious murmurs PULM: No noted coughing/dyspnea CTA B/L, no R/W/R GI: Abdomen soft, nondistended, no pain on palpation. BSx4 SKIN/MSK/EXT: Asymmetric fingernails, dirt under fingernails of bilateral upper extremities, no pain on palpation. Pedal pulses present B/L NEURO: AAOx3, no focal neuro deficits, able to move all 4 extremities Results: Labs 12/04/24 04:43 12/04/24 04:43 Quality Measures Quality Measures none Advance care planning discussed with:: patient Medications Home Medications and Allergies Home Medications ?Medication ?Instructions ?Recorded ?Confirmed ?Type calcium 600 mg (as 1 tab PO QDAY 01/18/19 11/30/24 History carbonate)-vitamin D3 20 mcg (800 unit) tablet (Caltrate with Vitamin D3) [id number] 8 mg-folic 400 1 tab PO QDAY 01/18/19 11/30/24 History mcg-K 50 mcg-lutein 300 mcg tablet (Centrum Silver Women) Allergies Allergy/AdvReac Type Severity Reaction Status Date / Time Lowes And Derivatives Allergy Severe Hives Verified 06/18/24 16:37 isopropyl alcohol Allergy Severe Unconscious Verified 06/18/24 16:37 nut - unspecified Allergy Severe CLOSE UP Verified 06/18/24 16:37 THROAT strawberry Allergy Severe Hives Verified 06/18/24 16:37 tetracycline Allergy Severe Hives Verified 06/18/24 16:37 Visit Medications Acetaminophen (Acetaminophen 325 Mg Tablet) 650 mg PO Q6H PRN PRN Reason: Fever >100.5 Stop: 01/02/25 16:49 Acetaminophen (Acetaminophen 325 Mg Tablet) 650 mg PO Q6H PRN PRN Reason: PAIN SCALE 1-3 (mild Stop: 01/02/25 16:49 Docusate Sodium (Docusate Sod 100 Mg Capsule) 100 mg PO QDAY KATY; Protocol Stop: 01/03/25 08:59 Ondansetron HCl (Ondansetron Inj 2 Mg/Ml Inj 2 Ml) 4 mg IV Q6H PRN; Protocol PRN Reason: NAUSEA OR VOMITING Stop: 01/02/25 16:49 Assessment & Plan Plan 84-year-old female with past medical history of asthma presented to the ED for social placement. Patient has been in the ED for approximately 5 days pending placement. Per report patient's house was found in unlivable conditions neighbors found the patient eating food from the trash. Patient states no active complaints at this time, she does not know why she is here. Denies headache, nausea, vomiting, shortness of breath, chest pain, abdominal pain, swelling of the extremities. #Acute encephalopathy #Failure to thrive Patient was found in her home in unlivable conditions Was found eating from the trash by neighbors Has been the ED for 5 days for social placement however conservatorship, has to be within the county Patient is AAOx3 however has intermittent episodes of losing track of time -Regular diet -Pending social placement -Monitor #History of asthma Patient states she has history of asthma since childhood On examination lungs are clear bilaterally No active complaints of shortness of breath or wheezing -Monitor at this time Case discussed with my senior Dr. Villatoro PGY-[address] Allan Anne MD PGY-1 Disposition: MedSurg Fluids: None Feeding: Regular Thrombo prophylaxis: SCDs Gastric Ulcer prophylaxis: None CODE STATUS: Full code Senior resident attestation: Patient evaluated and examined at the bedside, plan of care discussed with rest of the team including my attending physician, except as noted. Shauna PGY2 Attending Provider Attestation/Addendum I, Bianca Lmeus DO, attest that I was physically present for the suárez portions of the service and evaluated the patient with the resident and I reviewed and discussed the case with the resident and agree with the resident's findings and plans of care as documented above Patient is an 84 year old female with PmHx of asthma who was brought to the ED by EMS after she was seen by neighbors eating out of the trash. Patient is a poor historian, but states that she lives alone since her . Per chart review, home has been condemned and patient will need placement as she is unable to care for herself. Will admit to med/surg while pending placement .
[2024-12-04] VITALS: BP 107/60; PULSE 62; RESP 18; TEMP 37.2; O2SAT 96
--- NOTE | 2024-12-04 02:53 | PC.NURSE ---
attempted to do Point of contact form, pt unable to recall anyone who she would like to be her point of contact.
[2024-12-04 04:00] VITALS: BP 119/69; PULSE 59; RESP 18; TEMP 36.7; O2SAT 93
[2024-12-04 06:15] LABS: Basophils % (Auto) 1 % (0-2.5); Eosinophils # (Auto) 0.3 Thou/mm3 (0.0-0.5); Eosinophils % (Auto) 5 % (0-10); Hematocrit 45.1 % (36.0-46.0); Hemoglobin 15.4 g/dL (12.0-16.0); Immature Granulocytes % (Auto) 0 % (0-0); Immature Granulocytes Auto 0.01 Thou/mm3 (0.00-0.00); Lymphocytes # (Auto) 2.1 Thou/mm3 (1.0-4.8); Lymphocytes % (Auto) 30 % (10-50); Mean Corpuscular HGB Conc 34.1 g/dl (31.0-37.0); Mean Corpuscular Hemoglobin 29.5 pg (25.0-35.0); Mean Corpuscular Volume 86 fL (80-100); Monocytes # (Auto) 0.5 Thou/mm3 (0.0-0.8); Monocytes % (Auto) 8 % (0-12); Neutrophils # (Auto) 3.8 Thou/mm3 (1.8-7.7); Neutrophils % (Auto) 57 % (37-80); Nucleated Red Blood Cell % 0 /100 WBC (0); Platelet Count 172 Thou/mm3 (140-440); RDW Standard Deviation 40.6 fL (36.4-46.3); Red Blood Count 5.22 Miln/mm3 (4.00-5.20); White Blood Count 6.8 Thou/mm3 (3.6-11.0)
[2024-12-04 06:49] LABS: Alanine Aminotransferase 8 U/L (10-49); Albumin, Serum 3.9 gm/dL (3.4-4.8); Albumin/Globulin Ratio 1.6 (1.2-2.2); Alkaline Phosphatase 79 U/L (46-116); Anion Gap 8 (7-16); Aspartate Amino Transferase 15 U/L (0-34); BUN/Creatinine Ratio 20 Ratio (12-20); Bilirubin,Total 0.7 mg/dL (0.3-1.2); Blood Urea Nitrogen 16 mg/dL (9-23); Calcium 9.9 mg/dL (8.3-10.6); Carbon Dioxide 28.8 mMol/L (20.0-31.0); Chloride 104 mMol/L (98-107); Creatinine (Component) 0.8 mg/dL (0.6-1.3); Estimated Creatinine Clearance 47.8 mL/min (>60); Globulin 2.4 gm/dL (2.3-3.5); Glucose 82 mg/dL (74-106); Osmolality,Calculated 281 (275-295); Potassium 3.9 mMol/L (3.4-5.1); Sodium 141 mMol/L (136-145); Thyroid Stimulating Hormone 2.45 uIU/mL (0.55-4.78); Total Protein 6.3 gm/dL (5.7-8.2); eGFR > 60 See Note
[2024-12-04 08:00] VITALS: BP 121/67; PULSE 66; RESP 18; TEMP 36.6; O2SAT 95
[2024-12-04] MEDS: DOCUSATE SOD 100 MG CAPSULE PO (08:00)
--- NOTE | 2024-12-04 08:33 | PC.SS ---
Addendum entered by KAREEM Jo 12/04/24 15:03: SS follow up: Confirmed with Tiffanie at [facility] that they are aware the patient was a social admit to [facility] and facility continues to be in agreement with accepting the patient. Addendum entered by KAREEM Jo 12/04/24 14:15: Rounding note: social admit, accepting facility with [facility], pending three midnights. Addendum entered by KAREEM Jo 12/04/24 10:47: SS update: received a call back from patient's [facility] Jayashree [phone]. Jayashree informs she is in agreement with patient being discharge to [facility], pending medicare criteria and open bed availability. Jayashree verbalized understanding and is in agreement with discharge plan. Original Note: SS follow up: Spoke with Jessica at [facility], she confirmed they are willing to accept the patient following patient's three midnights stays and open bed availability. Attempted to contact patient's [facility] Jayashree [phone], to discuss the discharge plan, however she was unavailable and voicemail was provided requesting a call back.
[2024-12-04 11:59] VITALS: BP 120/71; PULSE 87; RESP 16; TEMP 36.3; O2SAT 97
--- NOTE | 2024-12-04 13:28 | PD.RESPRO ---
Documentation for date of: 12/04/24 Senior resident attestation: Patient evaluated and examined at the bedside, plan of care discussed with rest of the team including my attending physician, except as noted. Quresh PGY2 Subjective Subjective Interval history: Patient seen today at the bedside found awake, alert, orientedx3. No overnight events reported. Vital signs stable at this time. States no active complaints. Labs unremarkable, will dc labs at this time. Patient is still pending social placement at this time. Exam Vital Signs Temp Pulse Resp BP Pulse Ox O2 Del Method 97.4 F 87 16 120/71 97 Room Air 12/04/24 11:59 12/04/24 11:59 12/04/24 11:59 12/04/24 11:59 12/04/24 11:59 12/04/24 11:59 Narrative Exam Physical Exam GENERAL: NAD, AAOx3, frail HEENT: Moist mucosa. Eyes open, symmetrical, & clear CARDIO: Heart RRR, no obvious murmurs PULM: No noted coughing/dyspnea CTA B/L, no R/W/R GI: Abdomen soft, nondistended, no pain on palpation. BSx4 SKIN/MSK/EXT: Asymmetric fingernails, dirt under fingernails of bilateral upper extremities, no pain on palpation. Pedal pulses present B/L NEURO: AAOx3, no focal neuro deficits, able to move all 4 extremities Objective Labs 12/04/24 04:43 12/04/24 04:43 Labs: Laboratory Results - last 24 hr 12/04/24 04:43 WBC 6.8 RBC 5.22 H Hgb 15.4 Hct 45.1 MCV 86 MCH 29.5 MCHC 34.1 RDW Std Deviation 40.6 Plt Count 172 Neut % (Auto) 57 Lymph % (Auto) 30 [place] % (Auto) 8 Eos % (Auto) 5 Baso % (Auto) 1 Neut # (Auto) 3.8 Lymph # (Auto) 2.1 [place] # (Auto) 0.5 Eos # (Auto) 0.3 Baso # (Auto) 0.0 Immature Gran # (Auto) 0.01 H Absolute Nucleated RBC 0.00 Immature Gran % 0 Nucleated RBC % 0 Sodium 141 Potassium 3.9 Chloride 104 Carbon Dioxide 28.8 Anion Gap 8 BUN 16 Creatinine 0.8 Estim Creat Clear Calc 47.8 L eGFR > 60 BUN/Creatinine Ratio 20 Glucose 82 Calculated Osmolality 281 Calcium 9.9 Corrected Calcium 10.0 Total Bilirubin 0.7 AST 15 ALT 8 L Alkaline Phosphatase 79 Total Protein 6.3 Albumin 3.9 Globulin 2.4 Albumin/Globulin Ratio 1.6 TSH 2.45 Quality Measures Quality Measures none Advance care planning discussed with:: patient Assessment & Plan Assessment Current Active Medications: Generic Name Dose Route Start Last Admin Trade Name Freq PRN Reason Stop Dose Admin Acetaminophen 650 mg 12/03/24 16:50 Acetaminophen 325 Mg Tablet PO 01/02/25 16:49 Q6H PRN Fever >100.5 Acetaminophen 650 mg 12/03/24 16:50 Acetaminophen 325 Mg Tablet PO 01/02/25 16:49 Q6H PRN PAIN SCALE 1-3 (mild Docusate Sodium 100 mg 12/04/24 09:00 12/04/24 08:00 Docusate Sod 100 Mg Capsule PO 01/03/25 08:59 100 mg QDAY KATY Administration Protocol Ondansetron HCl 4 mg 12/03/24 16:50 Ondansetron Inj 2 Mg/Ml Inj 2 Ml IV 01/02/25 16:49 Q6H PRN NAUSEA OR VOMITING Protocol Plan 84-year-old female with past medical history of asthma presented to the ED for social placement. Patient has been in the ED for approximately 5 days pending placement. Per report patient's house was found in unlivable conditions neighbors found the patient eating food from the trash. Patient states no active complaints at this time, she does not know why she is here. Denies headache, nausea, vomiting, shortness of breath, chest pain, abdominal pain, swelling of the extremities. #Acute encephalopathy #Failure to thrive Patient was found in her home in unlivable conditions Was found eating from the trash by neighbors Has been the ED for 5 days for social placement however conservatorship, [place] to be within the county Patient is AAOx3 however has intermittent episodes of losing track of time -Regular diet -Pending social placement -Monitor #History of asthma Patient states she has history of asthma since childhood On examination lungs are clear bilaterally No active complaints of shortness of breath or wheezing -Monitor at this time Case discussed with my senior Dr. Villatoro PGY-[address] Allan Anne MD PGY-1 Disposition: MedSurg Fluids: None Feeding: Regular Thrombo prophylaxis: SCDs Gastric Ulcer prophylaxis: None CODE STATUS: Full code Attending Provider Attestation/Addendum Bianca Da Silva DO, attest that I was physically present for the suárez portions of the service and evaluated the patient with the resident and I reviewed and discussed the case with the resident and agree with the resident's findings and plans of care as documented above Patient seen and evaluated this AM. Resting comfortably, no acute events overnight. Labs unremarkable otherwise.
[2024-12-04 16:00] VITALS: BP 109/61; PULSE 73; RESP 18; TEMP 36.2; O2SAT 97
[2024-12-04 20:00] VITALS: BP 121/73; PULSE 84; RESP 17; TEMP 36.5; O2SAT 96
[2024-12-05] VITALS (7 sets, daily range): BP systolic 94–121; BP diastolic 52–69; PULSE 62–90; RESP 16–20; TEMP 36–36.6; O2SAT 95–97; BMI 20.1
[2024-12-05] MEDS: DOCUSATE SOD 100 MG CAPSULE PO (07:54)
--- NOTE | 2024-12-05 12:05 | PD.RESPRO ---
Documentation for date of: 12/05/24 Subjective Subjective Interval history: Patient evaluated the bedside, accompanied by friends, patient is at baseline mental status, AO x 3, no active complaints. Exam Vital Signs Temp Pulse Resp BP Pulse Ox O2 Del Method 96.8 F 62 16 121/59 L 95 Room Air 12/05/24 08:00 12/05/24 08:00 12/05/24 08:00 12/05/24 08:00 12/05/24 08:00 12/05/24 08:00 Narrative Exam Physical Exam GENERAL: NAD, AAOx3, frail HEENT: Moist mucosa. Eyes open, symmetrical, & clear CARDIO: Heart RRR, no obvious murmurs PULM: No noted coughing/dyspnea CTA B/L, no R/W/R GI: Abdomen soft, nondistended, no pain on palpation. BSx4 SKIN/MSK/EXT: Asymmetric fingernails, dirt under fingernails of bilateral upper extremities, no pain on palpation. Pedal pulses present B/L NEURO: AAOx3, no focal neuro deficits, able to move all 4 extremities Objective Labs 12/04/24 04:43 12/04/24 04:43 Quality Measures Quality Measures none Advance care planning discussed with:: patient Assessment & Plan Assessment Current Active Medications: Generic Name Dose Route Start Last Admin Trade Name Freq PRN Reason Stop Dose Admin Acetaminophen 650 mg 12/03/24 16:50 Acetaminophen 325 Mg Tablet PO 01/02/25 16:49 Q6H PRN Fever >100.5 Acetaminophen 650 mg 12/03/24 16:50 Acetaminophen 325 Mg Tablet PO 01/02/25 16:49 Q6H PRN PAIN SCALE 1-3 (mild Docusate Sodium 100 mg 12/04/24 09:00 12/05/24 07:54 Docusate Sod 100 Mg Capsule PO 01/03/25 08:59 100 mg QDAY KATY Administration Protocol Ondansetron HCl 4 mg 12/03/24 16:50 Ondansetron Inj 2 Mg/Ml Inj 2 Ml IV 01/02/25 16:49 Q6H PRN NAUSEA OR VOMITING Protocol Plan 84-year-old female with past medical history of asthma presented to the ED for social placement. Patient has been in the ED for approximately 5 days pending placement. Per report patient's house was found in unlivable conditions neighbors found the patient eating food from the trash. Patient states no active complaints at this time, she does not know why she is here. Denies headache, nausea, vomiting, shortness of breath, chest pain, abdominal pain, swelling of the extremities. #Acute encephalopathy?now resolved #Failure to thrive Patient was found in her home in unlivable conditions Was found eating from the trash by neighbors Has been the ED for 5 days for social placement however conservatorship, has to be within the county Patient is AAOx3 however has intermittent episodes of losing track of time -Regular diet -Patient is pending placement to SNF, case management working on the case. -Initial labs in the ER within normal range, repeat labs also within normal range, will order blood draw at a later date if indicated. #History of asthma Patient states she has history of asthma since childhood On examination lungs are clear bilaterally Currently no active complaints of shortness of breath or wheezing -Monitor at this time Case discussed with my attending Dr. Allan Howard PGY2 Disposition: MedSurg Fluids: None Feeding: Regular Thrombo prophylaxis: SCDs Gastric Ulcer prophylaxis: None CODE STATUS: Full code Attending Provider Attestation/Addendum Bianca Da Silva, , attest that I was physically present for the suárez portions of the service and evaluated the patient with the resident and I reviewed and discussed the case with the resident and agree with the resident's findings and plans of care as documented above Patient seen and evaluated this AM. Religious friends are at bedside and state that patient is at her baseline. She has no acute complaints at this time.
[2024-12-06] VITALS (7 sets, daily range): BP systolic 97–115; BP diastolic 48–72; PULSE 58–74; RESP 16–20; TEMP 36.1–36.6; O2SAT 95–96
--- NOTE | 2024-12-06 04:27 | PC.NURSE ---
Patient got a bit agitated saying she does not know where she is. She does not remember being at the hospital and she does not understand why she is at the hospital. Patient was reoriented and avasure in place for safety.
[2024-12-06] MEDS: DOCUSATE SOD 100 MG CAPSULE PO (08:03)
--- NOTE | 2024-12-06 08:35 | PC.SS ---
Addendum entered by KAREEM Jo 12/06/24 15:02: ETA 6pm [facility]. SNF staff aware , director of community education informed. Addendum entered by KAREEM Jo 12/06/24 12:12: [employer] transportation reference number: [id number]. Pending ETA. Addendum entered by KAREEM Jo 12/06/24 09:08: SS follow up: Contacted patient's conservator, Jayashree Man to notify of today's discharge plan and she was in agreement. Jayashree is aware patient will be an evening discharge today, pending open female bed at [facility]. Provided Jayashree's contact information to the facility for follow up if needed. Original Note: SS follow up: Spoke with Jessica at [facility] to identify if patient can d/c to their facility today. Was informed by Jessica that patient can d/c to their facility today after 6pm this evening as they have to wait for female bed to open later this evening.
[2024-12-06] MEDS: MIDODRINE 5 MG TABLET PO (13:24)
--- NOTE | 2024-12-06 14:37 | ESDS_ITS ---
<Statement entered by Zachary Mittal MD - 12/14/24 13:38> I reviewed above note and agree with findings and plans. I have also personally examined the patient with medicine team and went over assessment and plan with medical team including commander internal affairs and resident physician. Planned Discharge Date 12/06/24 DS: Providers Provider Date of admission: 12/03/24 17:13 Primary care physician: Eddi Paulson MD Admitting Provider: Bianca Lemus DO Attending Provider on Admission: Bianca Lemus DO Consults: 12/03/24 23:58 [facility] Referral - Nutrition Routine Comment: Positive screening for nutrition needs. [facility] Referral - Safety Routine Comment: Positive screening for safety needs. Attending Provider on DC: Dr Kyrie MD Discharging Provider: Boston Villatoro MD DS: Diagnosis Problem List Completed Was Problem List Reviewed/Reconciled?: Yes Hospital Course Hospital Course Hospital course: The patient is an 84-year-old female with past medical history of asthma presented to the ED for social placement. Patient has been in the ED for approximately 5 days pending placement. Per report patient's house was found in unlivable conditions neighbors found the patient eating food from the trash. Patient states no active complaints at this time, she does not know why she is here. Denies headache, nausea, vomiting, shortness of breath, chest pain, abdominal pain, swelling of the extremities. The patient is stable, ambulatory, afebrile and tolerating Per oral medications at the time of discharge. The patient understood and agreed to the treatment plan. Patient is recommended follow-up with primary care physician within 1 week to discuss recent hospitalization, Patient is recommended to continue with previous home medications, started new medication midodrine 5 mg to be taken 3 times daily, for low blood pressure, may follow-up with primary doctor and if blood pressure within normal limits can discontinue. In case of worsening sypmtoms please return to the emergency room. #Acute encephalopathy #Failure to thrive Patient was found in her home in unlivable conditions Was found eating from the trash by neighbors Has been the ED for 5 days for social placement however conservatorship, has to be within the county Patient is AAOx3 however has intermittent episodes of losing track of time -Regular diet -Pending social placement -Monitor #History of asthma Patient states she has history of asthma since childhood On examination lungs are clear bilaterally No active complaints of shortness of breath or wheezing -Monitor at this time Case discussed with my attending Dr. Kyrie Villatoro PGy 2 Time Spent with Patient Time attestation: Total time spent providing and/or coordinating discharge services: Quality: Stroke Pt Provided Written Stroke Discharge Instructions: No Exam Vital Signs Temp Pulse Resp BP Pulse Ox O2 Del Method 97.1 F 74 16 115/48 L 95 Room Air 12/06/24 12:00 12/06/24 13:12/06/24 12:00 12/06/24 13:12/06/24 12:12/06/24 12:00 Narrative Exam GENERAL: NAD, AAOx3, frail HEENT: Moist mucosa. Eyes open, symmetrical, & clear CARDIO: Heart RRR, no obvious murmurs PULM: No noted coughing/dyspnea CTA B/L, no R/W/R GI: Abdomen soft, nondistended, no pain on palpation. BSx4 SKIN/MSK/EXT: Asymmetric fingernails, dirt under fingernails of bilateral upper extremities, no pain on palpation. Pedal pulses present B/L NEURO: AAOx3, no focal neuro deficits, able to move all 4 extremities Discharge Plan Plan Patient Disposition: Xfer Skilled Nsg Fac (SNF) Care Plan Goals: Patient is recommended follow-up with primary care physician within 1 week to discuss recent hospitalization, Patient is recommended to continue with previous home medications, started new medication midodrine 5 mg to be taken 3 times daily, for low blood pressure, may follow-up with primary doctor and if blood pressure within normal limits can discontinue. In case of worsening sypmtoms please return to the emergency room. Prescriptions/Referrals Prescriptions/Med Rec: New midodrine 5 mg tablet 5 mg PO TID 30 Days Qty: 90 0RF Rx Instructions: do not give last dose of day after 6PM or within 4 hrs of bedtime Continued Centrum Silver Women 8 mg iron-400 mcg-300 mcg Tablet 1 tab PO QDAY calcium carbonate-vitamin D3 [Caltrate with Vitamin D3] 600 mg(1,500mg) -800 unit Tablet 1 tab PO QDAY potassium chloride 8 mEq capsule, extended release 8 meq PO QDAY Qty: 14 0RF albuterol sulfate 90 mcg/actuation Hfa Aerosol Inhaler 1 inh INHALATION QID PRN (Reason: wheeze/sob) Discontinued loperamide [Imodium A-D] 1 mg/7.5 mL liquid 2 mg PO Q2H PRN (Reason: loose stool) Qty: 120 0RF Rx Instructions: do not exceed 16 mg per 24 hrs loperamide [Imodium A-D] 2 mg capsule 2 mg PO Q6H PRN (Reason: loose stool) Qty: 14 0RF Referrals: Eddi Paulson MD [Primary Care Provider] - Patient/Caregiver Discharge Instructions Print Language: Monegasque Stand Alone Forms: Lucía Award Info., Patient Portal Info Letter Discharge Order Discharge Orders: Discharge (Routine); Ordered 12/06/24 Ordered By: Robin Jules Quality Discharge Quality Measures VTE prophylaxis
--- NOTE | 2024-12-06 18:08 | PC.NURSE ---
Report called to [facility] at 1808 on 12/06. ETA for transportation is 1900.
== END 2024-12-06 18:27 | disposition skilled nursing facility (03) | DRG 71 ==
LOC: SERX 12-03 06:07 → S3NX 12-03 20:45 → SERHOLD 12-04 06:40
PROVIDERS: Emergency Medicine; Student in an Organized Health Care Education/Training Program; Admitting Provider Internal Medicine; Emergency Provider Emergency Medicine; PCP Family Medicine; Visit Provider Internal Medicine
DX: G93.40 Encephalopathy, unspecified (principal); Z59.19 Other inadequate housing; J45.909 Unspecified asthma, uncomplicated; R62.7 Adult failure to thrive; Z68.20 Body mass index [BMI] 20.0-20.9, adult; Z90.710 Acquired absence of both cervix and uterus; Z60.2 Problems related to living alone; Z75.1 Person awaiting admission to adequate facility elsewhere
CPT/HCPCS: 36415; 80053; 81001; 84443; 85025; 99285; A9270

== ENCOUNTER 2025-04-19 18:59 | Inpatient (IN) | payer MEDICARE, MEDICAID, SELFPAY ==
--- NOTE | 2025-04-19 19:02 | PD.EDFALL ---
ED Fall Injury RME/HPI General Chief Complaint: Fall Stated Complaint: FALL Time Seen by Provider: 04/19/25 19:02 Arrival date/time: 04/19/25 18:59 This is an 84-year-old female who is brought in by ambulance with complaint of a fall. Per EMS there was no loss of consciousness. Patient fell to her left hip. Patient has some shortening to her left hip and pain to palpation. Patient walks with a cane. Patient denies any other injuries. Patient was given ketamine en route. Patient comes from [facility]. Patient usually ambulatory with a cane. Looking at previous notes patient was admitted previously to the hospital in November due to failure to thrive. Patient also has a history of generalized weakness and frequent falls, dementia Related Data Home Medications ?Medication ?Instructions ?Recorded ?Confirmed calcium 600 mg (as 1 tab PO QDAY 01/18/19 04/20/25 carbonate)-vitamin D3 20 mcg (800 unit) tablet (Caltrate with Vitamin D3) [id number] 8 mg-folic 400 1 tab PO QDAY 01/18/19 04/20/25 mcg-K 50 mcg-lutein 300 mcg tablet (Centrum Silver Women) albuterol sulfate 90 mcg/actuation 1 inh inhalation QID PRN wheeze/sob 12/05/24 04/20/25 aerosol inhaler acetaminophen 325 mg tablet 650 mg PO Q6H PRN fever or pain 04/20/25 04/20/25 bisacodyl 10 mg rectal suppository 10 mg MS Q24H PRN constipation 04/20/25 04/20/25 (Dulcolax (bisacodyl)) cetirizine 5 mg tablet 5 mg PO QDAY allergies 04/20/25 04/20/25 docusate sodium 100 mg capsule 100 mg PO QDAY bowel management 04/20/25 04/20/25 magnesium hydroxide 400 mg/5 mL 30 ml PO PRN PRN constipation 04/20/25 04/20/25 oral suspension (Milk of Magnesia) multivitamin with iron-mineral 1 tab PO QDAY supplement 04/20/25 04/20/25 sodium phosphates 19 gram-7 118 ml MS QDAY PRN constipation 04/20/25 04/20/25 gram/118 mL enema (Fleet Enema) Previous Rx's ?Medication ?Instructions ?Recorded aspirin 81 mg tablet,delayed 81 mg PO BID 30 days #60 tabs 04/24/25 release Allergies Allergy/AdvReac Type Severity Reaction Status Date / Time Staley And Derivatives Allergy Severe Hives Verified 04/20/25 03:29 isopropyl alcohol Allergy Severe Unconscious Verified 04/20/25 03:29 nut - unspecified Allergy Severe CLOSE UP Verified 04/20/25 03:29 THROAT strawberry Allergy Severe Hives Verified 04/20/25 03:29 tetracycline Allergy Severe Hives Verified 04/20/25 03:29 Review of Systems Review of Systems Systems Reviewed: All systems reviewed, normal except as documented Past Medical History Past Medical History NEUROLOGIC: Positive Seizures CARDIAC: Negative Cardiac Disorders or Congestive Heart Failure RESPIRATORY: Positive Asthma GASTROINTESTINAL: Positive Gastrointestinal Disorders, Gastrointestinal Bleed and Ulcer GENITOURINARY: Negative Genitourinary Disorders or Renal Disease REPRODUCTIVE: Positive Previous Pregnancies MUSCULOSKELETAL: Positive Musculoskeletal Disorders, Osteoporosis and Fractures ENT: Positive Cataracts ENDOCRINE: Negative Endocrine Disorders, Diabetes Mellitus Type 1 or Diabetes Mellitus Type 2 HEMATOLOGIC: Negative Blood Disorders or Sickle Cell Disease OTHER HISTORY: Positive Falls and Chicken Pox Family History FAMILY HISTORY: Positive Family Surgery Surgical History SURGICAL: Positive Open Reduction Internal Fixation and Hysterectomy Social History SMOKING STATUS: Never smoker SUBSTANCE USE: does not use ED Exam Narrative Physical exam: VITAL SIGNS: Reviewed. GENERAL APPEARANCE: Alert and interactive, follows commands, no acute distress HEAD AND FACE: Non-traumatic. ENT: PERRL, conjuctiva pink and clear, eyelid no trauma, Mucous membrane moist. NECK: Supple, nontender CHEST: No tenderness, no crepitus, no paradoxical movement, no retractions. LUNGS: Clear, well ventilated, symmetric, no rales, no wheezing, no rhonchi, no stridor, good breath sounds bilaterally. HEART: Regular rate, regular rhythm, no murmur, no gallops. ABDOMEN: Soft, nondistended NEUROLOGICAL: Gross motor function intact sensory function intact, Appropriate for age. MUSCULOSKELETAL: shortnening to left leg, pain to palpation left hip EXTREMITIES: No redness no skin breakdown on bilateral foot and leg. Distal neurovascular status intact bilateral foot SKIN: Color pink, dry Course Quality Measures none Orders Category Date Time Status COVID-19 Screening Questionnaire NOW Care 04/19/25 21:27 Completed Decision to Admit X1 Care 04/19/25 21:27 Completed Brink [Urinary Catheter] Care 04/19/25 21:36 Completed IV [Insert IV] STAT Care 04/19/25 19:04 Completed Consult to Orthopedic Stat Cons 04/19/25 21:29 Ordered XR femur LT 2V Stat Exams 04/19/25 19:04 Completed XR hip LT w pelvis min 4V Stat Exams 04/19/25 19:04 Completed CBC Stat Lab 04/19/25 22:00 Completed Comprehensive Metabolic Panel Stat Lab 04/19/25 22:00 Completed PT [Prothrombin Time with INR] Stat Lab 04/19/25 22:00 Completed Type and Screen Stat Lab 04/19/25 22:00 Completed Morphine Inj Med 04/19/25 20:00 Discontinued 2 mg IVP X1 ONE Ondansetron Inj [Zofran Inj] Med 04/19/25 20:00 Discontinued 4 mg IVP X1 ONE Vital Signs Vital signs: Vital Signs Temperature 98.6 F 04/19/25 19:44 Pulse Rate 70 04/19/25 19:44 Respiratory Rate 20 04/19/25 19:44 Blood Pressure 143/92 H 04/19/25 19:44 Pulse Oximetry (%) 98 04/19/25 19:44 Oxygen Delivery Method Room Air 04/19/25 19:44 Procedures -ED EKG Interpretation #1: Date of EK04/19/25 Time of EK:17 Rate: 64 Interpretation: Interpreted by me (Sinus rhythm) EKG Impression: No ectopy, Normal QRS and Normal intervals Fall MDM Narrative MDM Narrative:: femur x ray: FINDINGS: Acute angulated intertrochanteric fracture left hip, up to 20 mm separation of the main fracture components Shaft of the femur intact IMPRESSION: Acute intertrochanteric fracture left hip hip: FINDINGS: Acute intertrochanteric fracture left hip, with angulation at the fracture site Severe osteopenia Right hip bones of the pelvis intact IMPRESSION: Acute angulated intertrochanteric fracture left hip. I discussed results of x rays with Dr. Koehler. He would like patient to be admitted to the hospital. He will see patient. I spoke to Dr. Pitts hospitalist and he will admit patient to the hospital. wanted consulted and I did contact him and he agree to consult. Patient data External records reviewed:: [facility] previous records Clinical information provided by:: patient Social determinants that could affect healthcare access:: none Patient has the following chronic illnesses:: See HPI How is presenting disease/condition affected by chronic disease/condition?: uneffected by Evaluation data The following diagnostics were reviewed and interpreted by me:: lab results, radiology exam(s) and EKG tracing(s) Lab and/or radiology exams considered but not ordered:: none Interpretation Summary: see note Medications / Prescriptions Medications or Prescriptions considered but not ordered:: none Medication administrations:: Medication Administration History Discontinued Medications Acetaminophen (Acetaminophen 325 Mg Tablet) 650 mg PO Q6H PRN PRN Reason: pain and Fever >100.4 Stop: 05/19/25 21:52 Acetaminophen (Acetaminophen 325 Mg Tablet) 650 mg PO Q6H PRN PRN Reason: pain and Fever >100.4 Stop: 05/19/25 21:52 Last Admin: 04/26/25 08:41 Dose: 650 mg Documented By: Admin: 04/25/25 13:41 Dose: 650 mg Documented By: Admin: 04/25/25 04:47 Dose: 650 mg Documented By: Admin: 04/24/25 18:24 Dose: 650 mg Documented By: TD Hydrocodone Bitart/Acetaminophen (Hydrocodone/Apap 5/325 Tablet) 1 tab PO Q4HR PRN PRN Reason: PAIN SCALE 4-6 (Moderate Stop: 04/24/25 21:52 Last Admin: 04/24/25 09:07 Dose: 1 tab Documented By: Admin: 04/24/25 04:30 Dose: 1 tab Documented By: Admin: 04/23/25 11:33 Dose: 1 tab Documented By: Admin: 04/22/25 12:53 Dose: 1 tab Documented By: Admin: 04/22/25 08:44 Dose: 1 tab Documented By: Admin: 04/21/25 15:10 Dose: 1 tab Documented By: Admin: 04/21/25 09:34 Dose: 1 tab Documented By: Albuterol/Ipratropium (Albuterol/Ipratropium (Duoneb) Rt [place]err[place] 3 Ml Nebu) 3 ml INH Q4HRRT PRN PRN Reason: SOB or wheezing Stop: 05/19/25 22:59 Aspirin (Aspirin Ec 81 Mg Tabec) 81 mg PO BID KATY Stop: 05/23/25 20:59 Last Admin: 04/26/25 08:41 Dose: 81 mg Documented By: Admin: 04/25/25 21:02 Dose: 81 mg Documented By: Admin: 04/25/25 08:56 Dose: 81 mg Documented By: Admin: 04/24/25 20:06 Dose: 81 mg Documented By: Admin: 04/24/25 09:08 Dose: 81 mg Documented By: Admin: 04/23/25 22:21 Dose: 81 mg Documented By: WADE Bisacodyl (Bisacodyl 10 Mg Supp) 10 mg MS X1 ONE; Protocol Stop: 04/25/25 15:27 Last Admin: 04/25/25 16:40 Dose: Not Given Documented By: TD Non-Admin Reason: Patient Refused Bisacodyl (Bisacodyl 5 Mg Tabec) 15 mg PO QDAY ONE; Protocol Stop: 04/25/25 16:48 Last Admin: 04/25/25 16:59 Dose: 15 mg Documented By: TD Cefazolin Sodium (Cefazolin Inj 1 Gm Vial) Confirm Administered Dose 2 gm .ROUTE .STK-MED ONE Stop: 04/22/25 15:54 Sodium Chloride 1,000 ml/ (Gentamicin Sulfate 40 mg) 0 ml IRRIG X1 ONE Stop: 04/22/25 13:26 Dexamethasone Sodium Phosphate (Dexamethasone Sod Phos Inj 10 Mg/Ml Vial) Confirm Administered Dose 10 mg .ROUTE .STK-MED ONE Stop: 04/22/25 15:34 Fentanyl Citrate (Fentanyl Cit Inj 50 Mcg/Ml Amp 2ml) Confirm Administered Dose 100 mcg .ROUTE .STK-MED ONE Stop: 04/22/25 14:06 Fentanyl Citrate (Fentanyl Cit Inj 50 Mcg/Ml Amp 2ml) 25 mcg IVP Q5M PRN; Protocol PRN Reason: PAIN SCALE 1-3 (mild Stop: 04/22/25 18:33 Hydromorphone HCl (Hydromorphone Inj 2 Mg/Ml Vial) 0.2 mg IVP Q5M PRN; Protocol PRN Reason: PAIN 1-6 (mild-mod Stop: 04/22/25 18:34 Sodium Phosphate 22.5 mmol/ (Sodium Chloride) 507.5 mls @ 82.778 mls/hr IV X1 ONE Stop: 04/22/25 14:01 Last Admin: 04/22/25 08:43 Dose: 82.778 mls/hr Documented By: LH Acetaminophen (Ofirmev Inj) 1,000 mg in 100 mls @ 250 mls/hr IV Q6HR KAYT Stop: 04/23/25 12:23 Last Admin: 04/23/25 05:27 Dose: 250 mls/hr Documented By: Infusion: 04/23/25 01:38 Dose: Infused Documented By: Admin: 04/23/25 01:14 Dose: 250 mls/hr Documented By: Admin: 04/22/25 20:05 Dose: Not Given Documented By: CTF Non-Admin Reason: Wrong Time Infusion: 04/22/25 18:17 Dose: Infused Documented By: Admin: 04/22/25 17:53 Dose: 250 mls/hr Documented By: LH Lactulose (Lactulose Syrup 20 Gm/30 Ml Udc) 10 gm PO X1 ONE; Protocol Stop: 04/24/25 18:09 Last Admin: 04/24/25 18:17 Dose: 10 gm Documented By: TD Lactulose (Lactulose Syrup 20 Gm/30 Ml Udc) 20 gm PO X1 ONE; Protocol Stop: 04/25/25 10:58 Last Admin: 04/25/25 11:06 Dose: 20 gm Documented By: TD Lactulose (Lactulose Syrup 20 Gm/30 Ml Udc) 20 gm PO TID KATY; Protocol Stop: 05/26/25 08:44 Last Admin: 04/26/25 13:27 Dose: Not Given Documented By: MS Non-Admin Reason: patient refused Admin: 04/26/25 08:52 Dose: 20 gm Documented By: MS Magnesium Hydroxide (Milk Of Magnesia Susp 30 Ml Udc) 30 ml PO X1 ONE; Protocol Stop: 04/24/25 15:02 Last Admin: 04/24/25 16:29 Dose: 30 ml Documented By: LS Magnesium Hydroxide (Milk Of Magnesia Susp 30 Ml Udc) 30 ml PO X1 ONE; Protocol Stop: 04/25/25 09:07 Last Admin: 04/25/25 09:30 Dose: 30 ml Documented By: TD Morphine Sulfate (Morphine Sulf Inj 10 Mg/Ml Vial) 2 mg IVP X1 ONE Stop: 04/19/25 20:01 Last Admin: 04/19/25 20:14 Dose: 2 mg Documented By: DT Morphine Sulfate (Morphine Sulf Inj 10 Mg/Ml Vial) 2 mg IVP Q2H PRN PRN Reason: PAIN SCALE 7-10 (Severe Stop: 04/24/25 21:52 Last Admin: 04/21/25 06:43 Dose: 2 mg Documented By: Admin: 04/20/25 17:06 Dose: 2 mg Documented By: NGUYỄN Admin: 04/20/25 07:19 Dose: 2 mg Documented By: Admin: 04/20/25 01:22 Dose: 2 mg Documented By: Admin: 04/19/25 22:17 Dose: 2 mg Documented By: DT Morphine Sulfate (Morphine Sulf Inj 10 Mg/Ml Vial) 3 mg IVP Q5M PRN; Protocol PRN Reason: PAIN SCALE 4-6 (Moderate Stop: 04/22/25 18:33 Morphine Sulfate (Morphine Sulf Inj 10 Mg/Ml Vial) 1 mg IVP Q4HR PRN PRN Reason: PAIN SCALE 4-10(Mod-Sev Stop: 04/30/25 09:08 Last Admin: 04/26/25 02:59 Dose: 1 mg Documented By: Admin: 04/25/25 19:51 Dose: 1 mg Documented By: Admin: 04/25/25 09:30 Dose: 1 mg Documented By: TD Naloxegol (Naloxegol Oxalate 25 Mg Tablet (Non-Formulary)) 25 mg PO X1 ONE Stop: 04/25/25 11:53 Last Admin: 04/25/25 13:36 Dose: 25 mg Documented By: TD Ondansetron HCl (Ondansetron Inj 2 Mg/Ml Inj 2 Ml) 4 mg IVP X1 ONE; Protocol Stop: 04/19/25 20:01 Last Admin: 04/19/25 20:13 Dose: 4 mg Documented By: DT Ondansetron HCl (Ondansetron Inj 2 Mg/Ml Inj 2 Ml) 4 mg IVP Q6H PRN; Protocol PRN Reason: NAUSEA OR VOMITING Stop: 05/19/25 21:52 Ondansetron HCl (Ondansetron Inj 2 Mg/Ml Inj 2 Ml) Confirm Administered Dose 4 mg .ROUTE .STK-MED ONE Stop: 04/22/25 15:34 Ondansetron HCl (Ondansetron Inj 2 Mg/Ml Inj 2 Ml) 4 mg IVP X1 ONE Stop: 04/22/25 16:34 Phenylephrine HCl (Phenylephrine Inj In Ns 100 Mcg/Ml 10 Ml Syringe) Confirm Administered Dose 1,000 mcg .ROUTE .STK-MED ONE Stop: 04/22/25 15:38 Polyethylene Glycol (Polyethylene Glycol 17 Gm Packet) 17 gm PO QDAY KATY Stop: 05/21/25 08:59 Last Admin: 04/26/25 08:41 Dose: 17 gm Documented By: Admin: 04/25/25 08:56 Dose: 17 gm Documented By: Admin: 04/24/25 09:08 Dose: 17 gm Documented By: Admin: 04/23/25 08:06 Dose: 17 gm Documented By: Admin: 04/22/25 17:46 Dose: Not Given Documented By: GUERLINE Non-Admin Reason: NPO Admin: 04/21/25 09:30 Dose: 17 gm Documented By: GUERLINE Polyethylene Glycol (Polyethylene Glycol 17 Gm Packet) 17 gm PO X1 ONE Stop: 04/25/25 15:29 Last Admin: 04/25/25 16:37 Dose: 17 gm Documented By: SUPA Potassium Phos/Sodium Phos (Naph,[facility] Mbdb 1 Packet (1.5 Gm)) 1 packet PO BID KATY Stop: 05/24/25 08:59 Last Admin: 04/26/25 08:41 Dose: 1 packet Documented By: Admin: 04/25/25 21:01 Dose: 1 packet Documented By: Admin: 04/25/25 08:56 Dose: 1 packet Documented By: Admin: 04/24/25 20:06 Dose: 1 packet Documented By: Admin: 04/24/25 09:08 Dose: 1 packet Documented By: SUPA Propofol (Propofol Inj 10 Mg/Ml Vial 20 Ml) Confirm Administered Dose 200 mg IV .STK-MED ONE Stop: 04/22/25 14:06 Rocuronium [place] (Rocuronium Inj 10 Mg/Ml Vial 10 Ml) Confirm Administered Dose 100 mg .ROUTE .STK-MED ONE Stop: 04/22/25 15:34 Sennosides (Senna Tablet) 1 tab PO QDAY PRN; Protocol PRN Reason: CONSTIPATION Stop: 05/24/25 07:26 Last Admin: 04/25/25 08:56 Dose: 1 tab Documented By: Admin: 04/24/25 09:08 Dose: 1 tab Documented By: SUPA Sennosides (Senna Tablet) 1 tab PO QDAY KATY; Protocol Stop: 05/25/25 09:14 Last Admin: 04/26/25 08:42 Dose: 1 tab Documented By: Admin: 04/25/25 09:30 Dose: 1 tab Documented By: SUPA Sugammadex Sodium (Sugammadex Inj 100 Mg/Ml 2ml Vial) Confirm Administered Dose 200 mg .ROUTE .STK-MED ONE Stop: 04/22/25 16:22 See mar Consultations Consultation(s) initiated? (list below): Yes Consultation #1 (Physician, Specialty, Details): , I reviewed x-rays with him. He will see patient patient is to be admitted to the hospital. [id number] Consultation #2 (Physician, Specialty, Details): would like patient to have a cardiology referral, I placed a call to . Who stated he would come see patient Diagnosis Fall Differential Diagnosis: other (Hip fracture femur fracture, contusion) Most likely diagnosis given after review of the tests above:: Femur fracture Admission Indicated Admission indicated?: indicated Admission Request Was there a request for admission?: Yes Admission Attestation Admission request attestation: Discussed case with [] from Hospitalist service regarding admission. Discussed patients ED course, exam findings, labs, and radiology results. The Hospitalist [agrees,declines] to accept the patient for admission. Disposition Plan Disposition Plan: Admit Discharge Plan Plan Patient Disposition: Admit Acute Care w/in Hospital Problem List Clinical Impression: Fall, Femur fracture PA/IMPLEMENTATION ADVISOR Supervising Physician PA/IMPLEMENTATION ADVISOR Supervising Physician: jose alejandro
--- NOTE | 2025-04-19 19:04 | XR_ITS ---
Examination:Left hip AP, lateral, AP pelvis 3 views Technique: Hip AP lateral, AP pelvis, 3 views Exam date and time:April hours INDICATIONS: Patient fell today with image of the hip, hip pain. FINDINGS: Acute intertrochanteric fracture left hip, with angulation at the fracture site Severe osteopenia Right hip bones of the pelvis intact IMPRESSION: Acute angulated intertrochanteric fracture left hip.
--- NOTE | 2025-04-19 19:04 | XR_ITS ---
Examination: Left femur 2 views TECHNIQUE: AP lateral left femur 2 views Date and time: April 19, 2025 2100 hours INDICATIONS: Injury to the hip today, hip pain FINDINGS: Acute angulated intertrochanteric fracture left hip, up to 20 mm separation of the main fracture components Shaft of the femur intact IMPRESSION: Acute intertrochanteric fracture left hip
[2025-04-19 19:35] VITALS: PULSE 72; RESP 18; O2SAT 97
[2025-04-19 19:44] VITALS: BP 143/92; PULSE 70; RESP 20; TEMP 37; O2SAT 98
[2025-04-19 19:55] VITALS: BMI 22.4
[2025-04-19] MEDS: ONDANSETRON INJ 2 MG/ML INJ 2 ML 4 MG IVP (20:13)
[2025-04-19] MEDS: MORPHINE SULF INJ 10 MG/ML VIAL 2 MG IVP ×2 (20:14→22:17)
[2025-04-19 21:35] VITALS: BP 143/92; PULSE 89; RESP 16; TEMP 37; O2SAT 99
--- NOTE | 2025-04-19 21:58 | ESHP_ITS ---
Documentation for date of: 04/19/25 HPI History of Present Illness Chief complaint: fall History of present illness: 84-year-old female with past medical history of asthma and possible dementia was admitted to the hospital on 04/19/2025 after come to the ED after a ground-level fall. Patient stated that she was walking today, but she does not recall where she was walking to and she likely tripped on her own feet and fell and landed on her left side. She does not recall feeling dizzy, having any chest pain, any shortness of breath, or feeling any palpitations prior to falling. She did not lose consciousness and she did not hit her head. Patient walks with a cane at baseline. Otherwise she had no new complaints today. At this time patient denies any shortness of breath, chest pain, abdominal pain, burning sensation urination, or any diarrhea. Patient does mention that she does have pain on her hip. ED provider spoke with orthopedic surgeon who stated that they would like the patient to be admitted to the hospital for further workup. ED course: Initially came in mildly hypertensive and afebrile. Initial labs were relevant for some leukocytosis which is most likely reactive. Initial imaging included femur x-ray which showed acute intertrochanteric fracture of the left hip and hip and pelvis x-ray which showed acute angulated intertrochanteric fracture of the left hip. PMH: As above Social Hx: Denies any smoking, drugs, or alcohol. Surgical Hx: Hysterectomy Medication reconciliation pending Review of Systems Review of Systems Narrative Review of Systems: Constitutional: Denies sweats, Denies weight loss/gain, Denies fever, Denies chills. HEENT: Denies hearing loss, Denies ear pain, Denies postnasal drip, Denies double vision, Denies blurry vision. Respiratory: Denies shortness of breath, Denies cough, Denies wheezing. Cardiovascular: Denies chest pain, Denies palpitations, Denies sudden loss of consciousness. GI: Denies blood in stool, Denies constipation, Denies abdominal pain, Denies difficulty swallowing, Denies nausea or vomit. : Denies urinary incontinence, Denies pain while urinating, Denies increased urinary frequency. MSK: Admits joint pain, Denies joint swelling, Denies numbness. Skin: Denies rash, Denies itching, Denies easy bruising. Neuro: Denies headaches, Denies dizziness, Denies seizures. Past Medical History Past Medical History NEUROLOGIC: Positive Seizures CARDIAC: Negative Cardiac Disorders or Congestive Heart Failure RESPIRATORY: Positive Asthma GASTROINTESTINAL: Positive Gastrointestinal Disorders, Gastrointestinal Bleed and Ulcer GENITOURINARY: Negative Genitourinary Disorders or Renal Disease REPRODUCTIVE: Positive Previous Pregnancies MUSCULOSKELETAL: Positive Musculoskeletal Disorders, Osteoporosis and Fractures ENT: Positive Cataracts ENDOCRINE: Negative Endocrine Disorders, Diabetes Mellitus Type 1 or Diabetes Mellitus Type 2 HEMATOLOGIC: Negative Blood Disorders or Sickle Cell Disease OTHER HISTORY: Positive Falls and Chicken Pox Family History FAMILY HISTORY: Positive Family Surgery Surgical History SURGICAL: Positive Open Reduction Internal Fixation and Hysterectomy Social History SMOKING STATUS: Never smoker SUBSTANCE USE: does not use Exam Vital Signs Temp Pulse Resp BP Pulse Ox O2 Del Method 98.6 F 70 20 143/92 H 98 Room Air 04/19/25 19:44 04/19/25 19:44 04/19/25 19:44 04/19/25 19:44 04/19/25 19:44 04/19/25 19:44 Narrative Exam General: A/O x2 not to time, no acute distress Eyes: PERRL, EOMI. Anicteric, vision grossly intact. Ears: No ear pain, no ear discharge, Hearing grossly intact. Nose: No nasal discharge. Mouth/Throat: Moist mucous membranes, no redness, no lesions. Neck: Neck supple, non-tender, no cervical lymphadenopathy. Lungs: Clear ISREAL to auscultation and percussion, No accessory muscle use. Cardio: Normal S1/S2, regular rhythm, no murmurs, no JVD Abdomen: Soft, non-tender, no palpable masses, peristalsis present, no guarding or rebound. Extremities: Symmetrical, L LE shortening, No bruises, tender to palpation, no peripheral edema , non-tender, peripheral pulses presents. Skin: No rashes, no lesions, warm to touch. Neuro: No focal neurological deficits. motor and sensory intact Psych: Cooperative, appropriate mood and effect. Results: Labs 04/26/25 08:22 04/26/25 08:22 Quality Measures Quality Measures VTE prophylaxis Advance care planning discussed with:: patient Medications Home Medications and Allergies Home Medications ?Medication ?Instructions ?Recorded ?Confirmed ?Type calcium 600 mg (as 1 tab PO QDAY 01/18/1904/20 History carbonate)-vitamin D3 20 mcg (800 unit) tablet (Caltrate with Vitamin D3) [id number] 8 mg-folic 400 1 tab PO QDAY 04/20/25 History mcg-K 50 mcg-lutein 300 mcg tablet (Centrum Silver Women) albuterol sulfate 90 mcg/actuation 1 inh inhalation QI D PRN wheeze/sob 12/05/24 04/20/25 History aerosol inhaler acetaminophen 325 mg tablet 650 mg PO Q6H PRN fever or pain 04/20/25 04/20/25 History bisacodyl 10 mg rectal suppository 10 mg NC Q24H PRN c onstipation 04/20/25 04/20/25 History (Dulcolax (bisacodyl)) cetirizine 5 mg tablet 5 mg PO QDAY allergies 04/2004/20/25 History docusate sodium 100 mg capsule 100 mg PO QDAY bowel ma nagement 04/20/25 04/20/25 History magnesium hydroxide 400 mg/5 mL 30 ml PO PRN PRN const ipation 04/20/25 04/20/25 History oral suspension (Milk of Magnesia) multivitamin with iron-mineral 1 tab PO QDAY supplemen t 04/20/25 04/20/25 History sodium phosphates 19 gram-7 118 ml NC QDAY PRN constip ation 04/20/25 04/20/25 History gram/118 mL enema (Fleet Enema) Allergies Allergy/AdvReac Type Severity Reaction Status Date / Time [place] And Derivatives Allergy Severe Hives Verified 04/20/25 03:29 isopropyl alcohol Allergy Severe Unconscious Verified 04/20/25 03:29 nut - unspecified Allergy Severe CLOSE UP Verified 04/20/25 03:29 THROAT strawberry Allergy Severe Hives Verified 04/20/25 03:29 tetracycline Allergy Severe Hives Verified 04/20/25 03:29 Visit Medications Acetaminophen (Acetaminophen 325 Mg Tablet) 650 mg PO Q6H PRN PRN Reason: pain and Fever >100.4 Stop: 05/19/25 21:52 Hydrocodone Bitart/Acetaminophen (Hydrocodone/Apap 5/325 Tablet) 1 tab PO Q4HR PRN PRN Reason: PAIN SCALE 4-6 (Moderate Stop: 04/24/25 21:52 Albuterol/Ipratropium (Albuterol/Ipratropium (Duoneb) Rt Monserrat 3 Ml Nebu) 3 ml INH Q4HRRT PRN PRN Reason: SOB or wheezing Stop: 05/19/25 22:59 Morphine Sulfate (Morphine Sulf Inj 10 Mg/Ml Vial) 2 mg IVP Q2H PRN PRN Reason: PAIN SCALE 7-10 (Severe Stop: 04/24/25 21:52 Ondansetron HCl (Ondansetron Inj 2 Mg/Ml Inj 2 Ml) 4 mg IVP Q6H PRN; Protocol PRN Reason: NAUSEA OR VOMITING Stop: 05/19/25 21:52 Discontinued Medications Morphine Sulfate (Morphine Sulf Inj 10 Mg/Ml Vial) 2 mg IVP X1 ONE Stop: 04/19/25 20:01 Last Admin: 04/19/25 20:14 Dose: 2 mg Ondansetron HCl (Ondansetron Inj 2 Mg/Ml Inj 2 Ml) 4 mg IVP X1 ONE; Protocol Stop: 04/19/25 20:01 Last Admin: 04/19/25 20:13 Dose: 4 mg Assessment & Plan Plan 84-year-old female with past medical history of asthma and possible dementia was admitted to the hospital on 04/19/2025 for left hip fracture. #Left hip fracture secondary to #Mechanical fall Patient had a fall today and landed on her left hip resulting in left hip fracture Orthopedic surgeon was consulted by the ED provider and wanted the patient to be admitted for possible surgery. Imaging included x-ray of the femur and x-ray of the head which both showed left hip fracture There are no bruises and patient's legs does seem shorter than the right, but pedal pulses were present and no signs of ischemia Plan: Pain control manage 1 with Tylenol 650, [place] 5, and morphine 2 mg PTT and PT for morning labs N.p.o. after midnight Referred to physical therapy Cardiology consulted for clearance Orthopedic surgeon consulted, appreciate recommendations #Leukocytosis WBC 18.9 on admission likely reactive No fevers and no signs of infection Plan: Will continue to monitor. Disposition: Patient admitted to [facility] for L hip fracture Diet: NPO GI prophylaxis: not indicated DVT prophylaxis: SCDs Code: Full Case disclosed with Attending Dr. Jean Pierre Vela PGY1 Disclaimer: Even though this this note was dictated by speech recognition and even though it was carefully revised there may still be minor errors in cloth shrinking machine operator helper due to voice recognition software. Attending Provider Attestation/Addendum I have examined the patient, reviewed labs and imaging findings, discussed the case with the resident(s), and reviewed entered orders. I agree with the plan of care as outlined in this note, with these additional summaries/recommendations: 84-year-old female presents after ground-level fall found to have left hip fracture. She will be admitted for further management of pain and possible surgical intervention. Ramos Greenfield MD
--- NOTE | 2025-04-19 22:03 | EKG_ITS ---
[facility] Test Date: 2025-04-19 Pat Name: DARIEL PORTILLO Department: Room: - Gender: Female Corrections Nurse: : 1940 Requested By: Isis Kaplan Order Number: [id number] Reading MD: Isis Kaplan Measurements Intervals [place] Rate: 64 P: 51 VA: 139 QRS: 17 QRSD: 94 T: 63 QT: 399 QTc: 412 Interpretive Statements SINUS RHYTHM SEPTAL MYOCARDIAL INFARCTION , OF INDETERMINATE AGE [40+ ms Q WAVE IN V1/V2] Compared to ECG 06/13/2024 15:17:17 Myocardial infarct finding now present Sinus arrhythmia no longer present Short VA interval no longer present Left-axis deviation no longer present /store/S0/[id number]/[id number].pdf
[2025-04-19 22:12] LABS: Basophils # (Auto) 0.1 Thou/mm3 (0.0-0.2); Basophils % (Auto) 0 % (0-2.5); Eosinophils # (Auto) 0.2 Thou/mm3 (0.0-0.5); Eosinophils % (Auto) 1 % (0-10); Hematocrit 39.5 % (36.0-46.0); Hemoglobin 13.9 g/dL (12.0-16.0); Immature Granulocytes % (Auto) 0 % (0-0); Immature Granulocytes Auto 0.08 Thou/mm3 (0.00-0.00); Lymphocytes % (Auto) 5 % (10-50); Mean Corpuscular HGB Conc 35.2 g/dl (31.0-37.0); Mean Corpuscular Hemoglobin 29.6 pg (25.0-35.0); Mean Corpuscular Volume 84 fL (80-100); Monocytes # (Auto) 0.6 Thou/mm3 (0.0-0.8); Monocytes % (Auto) 3 % (0-12); Neutrophils % (Auto) 90 % (37-80); Nucleated Red Blood Cell % 0 /100 WBC (0); Platelet Count 190 Thou/mm3 (140-440); RDW Standard Deviation 40.3 fL (36.4-46.3); Red Blood Count 4.69 Miln/mm3 (4.00-5.20); White Blood Count 18.9 Thou/mm3 (3.6-11.0)
[2025-04-19 22:25] VITALS: PULSE 75; PULSE 77; RESP 12; RESP 14; RESP 92; O2SAT 92
[2025-04-19 22:25] LABS: Prothrombin Time 10.9 Seconds (9.0-12.2)
[2025-04-19 22:30] LABS: Alanine Aminotransferase 35 U/L (10-49); Albumin, Serum 3.7 gm/dL (3.4-4.8); Albumin/Globulin Ratio 1.7 (1.2-2.2); Alkaline Phosphatase 107 U/L (46-116); Anion Gap 9 (7-16); BUN/Creatinine Ratio 21 Ratio (12-20); Bilirubin,Total 0.4 mg/dL (0.3-1.2); Blood Urea Nitrogen 17 mg/dL (9-23); Calcium 9.5 mg/dL (8.3-10.6); Calcium (Corrected) 9.7 mg/dL (8.5-10.1); Carbon Dioxide 26.2 mMol/L (20.0-31.0); Chloride 102 mMol/L (98-107); Creatinine (Component) 0.8 mg/dL (0.6-1.3); Estimated Creatinine Clearance 51.8 mL/min (>60); Globulin 2.2 gm/dL (2.3-3.5); Glucose 147 mg/dL (74-106); Osmolality,Calculated 278 (275-295); Potassium 4.2 mMol/L (3.4-5.1); Sodium 137 mMol/L (136-145); Total Protein 5.9 gm/dL (5.7-8.2); eGFR > 60 See Note
[2025-04-19 22:37] LABS: Collection Type, Urine Catheter; Squamous Epithelial Cell,Urine 0 /hpf (0-5)
[2025-04-19 22:42] LABS: Bilirubin,Urine Negative (Negative); Blood,Urine Negative (Negative); Clarity,Urine Clear (Clear/Hazy); Color,Urine Lt-Yellow (Lt Yel-Yel); Glucose, Urine Negative (Negative); Ketones,Urine Negative (Negative); Leukocyte Esterase,Urine Negative (Negative); Nitrite,Urine Negative (Negative); PH,Urine 6.5 (5.0-7.0); Protein,Urine Negative (Neg - Trace); RBC,Urine 9 /hpf (0-3); Specific Gravity,Urine 1.015 (1.001-1.035); Urobilinogen,Urine Negative mg/dL (0.0-1.0); WBC,Urine 1 /hpf (0-5)
[2025-04-19 23:00] VITALS: BP 110/52; PULSE 88; RESP 14; TEMP 37; O2SAT 96
[2025-04-20] MEDS: MORPHINE SULF INJ 10 MG/ML VIAL 2 MG IVP ×3 (01:22→17:06)
[2025-04-20 01:32] VITALS: BMI 23.2
[2025-04-20 04:00] VITALS: BP 122/76; PULSE 59; RESP 16; TEMP 36.6; O2SAT 94
[2025-04-20 05:58] LABS: Basophils % (Auto) 0 % (0-2.5); Eosinophils % (Auto) 0 % (0-10); Hematocrit 39.1 % (36.0-46.0); Hemoglobin 13.4 g/dL (12.0-16.0); Immature Granulocytes % (Auto) 1 % (0-0); Immature Granulocytes Auto 0.08 Thou/mm3 (0.00-0.00); Lymphocytes # (Auto) 0.7 Thou/mm3 (1.0-4.8); Lymphocytes % (Auto) 4 % (10-50); Mean Corpuscular HGB Conc 34.3 g/dl (31.0-37.0); Mean Corpuscular Hemoglobin 29.6 pg (25.0-35.0); Mean Corpuscular Volume 86 fL (80-100); Monocytes # (Auto) 0.6 Thou/mm3 (0.0-0.8); Monocytes % (Auto) 4 % (0-12); Neutrophils # (Auto) 14.8 Thou/mm3 (1.8-7.7); Neutrophils % (Auto) 91 % (37-80); Nucleated Red Blood Cell % 0 /100 WBC (0); Platelet Count 214 Thou/mm3 (140-440); RDW Standard Deviation 41.2 fL (36.4-46.3); Red Blood Count 4.53 Miln/mm3 (4.00-5.20); White Blood Count 16.2 Thou/mm3 (3.6-11.0)
[2025-04-20 06:13] LABS: Partial Thromboplastin Time 24.5 Seconds (22.0-36.0); Prothrombin Time 10.8 Seconds (9.0-12.2)
--- NOTE | 2025-04-20 06:18 | PC.NURSE ---
called Mike Goetz to inquire re consents- per staff that pt signs own consent. And re last seizure- unknown and no seizure charted for march 2025.
[2025-04-20 07:37] LABS: Alanine Aminotransferase 129 U/L (10-49); Albumin, Serum 3.8 gm/dL (3.4-4.8); Albumin/Globulin Ratio 1.6 (1.2-2.2); Alkaline Phosphatase 116 U/L (46-116); Anion Gap 11 (7-16); BUN/Creatinine Ratio 21 Ratio (12-20); Bilirubin,Total 0.5 mg/dL (0.3-1.2); Blood Urea Nitrogen 21 mg/dL (9-23); Calcium 9.5 mg/dL (8.3-10.6); Calcium (Corrected) 9.7 mg/dL (8.5-10.1); Carbon Dioxide 27.9 mMol/L (20.0-31.0); Chloride 103 mMol/L (98-107); Estimated Creatinine Clearance 39.9 mL/min (>60); Globulin 2.4 gm/dL (2.3-3.5); Glucose 179 mg/dL (74-106); Magnesium 2.1 mg/dL (1.6-2.6); Osmolality,Calculated 290 (275-295); Potassium 4.9 mMol/L (3.4-5.1); Sodium 142 mMol/L (136-145); Total Protein 6.2 gm/dL (5.7-8.2); eGFR 56 See Note
[2025-04-20 08:00] VITALS: BP 118/66; PULSE 82; RESP 18; TEMP 36.7; O2SAT 97
--- NOTE | 2025-04-20 11:30 | ESPR_ITS ---
Documentation for date of: 04/20/25 Subjective Subjective Interval history: Patient was seen and examined by the bedside. No acute overnight events. Patient denies having pain, appears confused, does not reports where she is or circumstanes of her fall. Pending cardiology clearance for the surgery by Dr. Koehler. Contacted [facility], Jerica reported that the patient has been confused on the baseline and that the patient is under conservatorship by Jayashree Man [phone]. Exam Vital Signs Temp Pulse Resp BP Pulse Ox O2 Del Method O2 Flow Rate 98.0 F 82 18 118/66 97 Nasal Cannula 2 04/20/25 08:00 04/20/25 08:00 04/20/25 08:00 04/20/25 08:00 04/20/25 08:00 04/20/25 08:00 04/20/25 08:00 Narrative Exam Gen: Well-developed and well-nourished. HEENT: NCAT, PERRLA, EOMI, MMM, anicteric conjunctivae. CVS: normal S1 and S2. RRR. No M/R/G. Resp: CTA B/L. No rhonchi, rales, crackles or wheezing. Abd: soft, non-tender, non-distended. BS+ in all 4 quadrants. MSK: Movements in left extremity is restricted. Left lower extremity is externally rotated. No edema or rash. Neuro: CN II-XII grossly intact. Movements in left extremity is restricted. Alert and oriented x1. Psych: appropriate mood and affect. Objective Labs 04/21/25 05:09 04/21/25 05:09 Labs: Laboratory Results - last 24 hr 04/19/25 04/19/25 04/20/25 22:00 22:19 04:41 WBC 18.9 H 16.2 H RBC 4.69 4.53 Hgb 13.9 13.4 Hct 39.5 39.1 MCV 84 86 MCH 29.6 29.6 MCHC 35.2 34.3 RDW Std Deviation 40.3 41.2 Plt Count 190 214 Neut % (Auto) 90 H 91 H Lymph % (Auto) 5 L 4 L Town[place] % (Auto) 3 4 Eos % (Auto) 1 0 Baso % (Auto) 0 0 Neut # (Auto) 17.0 H 14.8 H Lymph # (Auto) 1.0 0.7 L Towns # (Auto) 0.6 0.6 Eos # (Auto) 0.2 0.0 Baso # (Auto) 0.1 0.0 Immature Gran # (Auto) 0.08 H 0.08 H Absolute Nucleated RBC 0.00 0.00 Immature Gran % 0 1 H Nucleated RBC % 0 0 PT 10.9 10.8 INR 1.0 1.0 APTT 24.5 Sodium 137 142 Potassium 4.2 4.9 D Chloride 102 103 Carbon Dioxide 26.2 27.9 Anion Gap 9 11 BUN 17 21 Creatinine 0.8 1.0 Estim Creat Clear Calc 51.8 L 39.9 L eGFR > 60 56 L BUN/Creatinine Ratio 21 H 21 H Glucose 147 H 179 H Calculated Osmolality 278 290 Calcium 9.5 9.5 Corrected Calcium 9.7 9.7 Magnesium 2.1 Total Bilirubin 0.4 0.5 ALT 35 129 H Alkaline Phosphatase 107 116 Total Protein 5.9 6.2 Albumin 3.7 3.8 Globulin 2.2 L 2.4 Albumin/Globulin Ratio 1.7 1.6 Ur Collection Type Catheter Urine Color Lt-Yellow Urine Clarity Clear Urine pH 6.5 Ur Specific [place] 1.015 Urine Protein Negative Urine Glucose (UA) Negative Urine Ketones Negative Urine Blood Negative Urine Nitrite Negative Urine Bilirubin Negative Urine Urobilinogen (Auto) Negative Ur Leukocyte Esterase Negative Urine RBC 9 H Urine WBC 1 Ur Squamous Epith Cells 0 Urine Bacteria None Blood Type O Positive Antibody Screen NEGATIVE Blood Bank Wristband ID Yes Quality Measures Quality Measures VTE prophylaxis Advance care planning discussed with:: other Assessment & Plan Assessment Current Active Medications: Generic Name Dose Route Start Last Admin Trade Name Earl PRN Reason Stop Dose Admin Acetaminophen 650 mg 04/20/25 11:03 Acetaminophen 325 Mg Tablet PO 05/19/25 21:52 Q6H PRN pain and Fever >100.4 Hydrocodone Bitart/Acetaminophen 1 tab 04/19/25 21:53 Hydrocodone/Apap 5/325 Tablet PO 04/24/25 21:52 Q4HR PRN PAIN SCALE 4-6 (Moderate Albuterol/Ipratropium 3 ml 04/19/25 21:53 Albuterol/Ipratropium (Duoneb) Rt [place] 3 Ml Nebu INH 05/19/25 22:59 Q4HRRT PRN SOB or wheezing Morphine Sulfate 2 mg 04/19/25 21:53 04/20/25 07:19 Morphine Sulf Inj 10 Mg/Ml Vial IVP 04/24/25 21:52 2 mg Q2H PRN Administration PAIN SCALE 7-10 (Severe Ondansetron HCl 4 mg 04/19/25 21:53 Ondansetron Inj 2 Mg/Ml Inj 2 Ml IVP 05/19/25 21:52 Q6H PRN NAUSEA OR VOMITING Protocol Plan The patient is a 84-year-old female with past medical history of asthma and possible dementia was admitted to the hospital on 04/19/2025 for left hip fracture. #Left hip fracture secondary to #Mechanical fall Patient had a fall today and landed on her left hip resulting in left hip fracture Orthopedic surgeon was consulted by the ED provider and wanted the patient to be admitted for possible surgery. Imaging included x-ray of the femur and x-ray of the head which both showed left hip fracture There are no bruises and patient's legs does seem shorter than the right, but pedal pulses were present and no signs of ischemia PTT and PT are normal. Plan: -Pain control manage 1 with Tylenol 650, [place] 5, and morphine 2 mg -Physical therapy after the surgery -Cardiology consulted for clearance -Orthopedic surgeon consulted, appreciate recommendations #Leukocytosis WBC 18.9 on admission likely reactive No fevers and no signs of infection Plan: -Will continue to monitor. #Possible dementia #Cognitive deficit Patient appears to be confused. According to the SNF, she is confused at the baseline. Plan: - will continue to monitor Disposition: medsurg Diet:regular diet GI prophylaxis: not indicated DVT prophylaxis: SCDs Code: Full code Plan of care discussed with attending Dr. Lemus. Donna Ordonez MD, PGY 1. Attending Provider Attestation/Addendum Bianca Da Silva DO, attest that I was physically present for the suárez portions of the service and evaluated the patient with the resident and I reviewed and discussed the case with the resident and agree with the resident's findings and plans of care as documented above Patient seen and evaluated this AM. Patient is A&Ox1 and thinks that she is at home. Patient does not know where she is or what the date is. Patient does not recall her fall. LLE is externally rotated. Patient denies any shortness of breath, chest pain or hip pain. Pending cardiac clearance and ortho evaluation. Patient is under conservatorship from whom consent will need to be obtained. Echo pending.
[2025-04-20 12:00] VITALS: BP 120/68; PULSE 92; RESP 18; TEMP 36.4; O2SAT 98
--- NOTE | 2025-04-20 13:50 | ECHO_ITS ---
Transthoracic Echo Report Ht (in): 66 Wt (lb): 144 Exam Location: Echo Lab Status: Inpatient Public Speaker: Mayi Hernandez Indications: Procedure Performed: BP: 120 / 68 HR: 9 Technical Quality: Very technically difficult study MEASUREMENTS (Male / Female) Normal Values 2D ECHO LA Volume Index 21.4 cm?/m? 16 - 28 cm?/m? DOPPLER AV Peak Velocity 162.0 cm/s AV Peak Gradient 10.5 mmHg AV Mean Gradient 5.0 mmHg AV Velocity Time Integral 28.0 cm AI Peak Velocity 300.0 cm/s AI Peak Gradient 36.0 mmHg AI Pressure Half Time 3643.0 ms LVOT Peak Velocity 137.0 cm/s LVOT Peak Gradient 7.5 mmHg LVOT Velocity Time Integral 24.0 cm MV Peak Velocity 125.0 cm/s MV Peak Gradient 6.3 mmHg MV Mean Velocity 94.9 cm/s MV Mean Gradient 4.0 mmHg MV Area PHT 2.6 cm? MR Peak Velocity 232.0 cm/s MR Peak Gradient 21.5 mmHg Mitral E Point Velocity 74.2 cm/s Mitral A Point Velocity 96.5 cm/s Mitral E to A Ratio 0.8 LV E' Lateral Velocity 7.3 cm/s Mitral E to LV E' Lateral Ratio 10.2 LV E' Septal Velocity 4.5 cm/s Mitral E to LV E' Septal Ratio 16.6 FINDINGS Left Ventricle Normal left ventricular size, wall thickness, systolic function with no obvious regional wall motion abnormalities. There is grade I diastolic dysfunction of the left ventricle (impaired relaxation pattern). The ejection fraction is visually estimated at 60-65 %. Right Ventricle The right ventricle is normal in size and systolic function. Left Atrium The left atrium is normal by two-dimensional, color flow and Doppler imaging with no structural abnormalities, no thrombus formation present. Right Atrium The right atrium is normal by two-dimensional imaging, color flow and Doppler imaging with no structural abnormalities, no thrombus formation present. Atrial Septum The interatrial septum appears normal with no evidence of a shunt. Aorta The aorta is normal by two-dimensional, color flow and Doppler interrogation. Mitral Valve The mitral valve is normal by two-dimensional, color flow and Doppler interrogation. Mild mitral regurgitation. Aortic Valve The aortic valve is trileaflet and normal by two-dimensional, color flow and Doppler interrogation. Mild-to- moderate aortic valve regurgitation. Tricuspid Valve The tricuspid valve is normal by two-dimensional, color flow and Doppler interrogation. There is trace tricuspid valve regurgitation. Pulmonic Valve The pulmonic valve is not well visualized. There is no significant pulmonic valve regurgitation. Vessels Inferior vena cava not well visualized. Pericardium The pericardium is normal by two-dimensional imaging. There is no significant pericardial effusion. CONCLUSIONS Indication: Pre-op Normal LV size, wall thickness. There is grade I diastolic dysfunction. Estimated EF 60-65 %. The RV is normal in size and systolic function. Mild MR. Mild to moderate Aortic regurgitation . Trace TR. IVC not well visualized. Lynne Gil (Electronically Signed) Final Date: 21 April 2025 17:11
--- NOTE | 2025-04-20 13:53 | PC.SS ---
Addendum entered by Jonathan Brand 04/20/25 14:08: Pt seen by Dr. Paulson on 04/16/2025 per Chauncey Gutierres Original Note: Usha Aldana is a 84 year old female admitted to the [facility] for Hip Fracture. SW made contact with Nenita business planner at [facility] . Role and reason for the contact was explained to Nenita. confirmed pt is assigned a case worker with [facility]: Jayashree Man, [facility] Conservator, ; [email or web address]. Jayashree is to be notified for all medical decision. Pt resides at [facility] and plan is for pt to return upon discharge. Pt is ambulatory and is verbal but will repeat stories. Pt is mostly independent at the facility and requires little to no assistance with ADLs. [facility] confirmed PASRR will not be needed if pt returns after 3-days; [facility] will be able to hold pt bed for 7-days. [facility] that pt does not have any family they are aware of and has information on a Skinny Infante (unsure of spelling). Nenita to provide further information on contact as this is a family contact only and not decision maker. Nenita is unaware of Izzy and Azael Osullivan, on pt [facility] facesheet, ?and has not release information to them, nor is Nenita aware of Abhinav Katya, also on [facility] facesheet. [facility] confirmed once pt is able to discharge they should be able to assist with transportation. Pt sees Dr. Eddi Paulson, date of last visit is unsure as Nenita to provide information. coordinator cardiopulmonary services will remain available for any additional needs.? Plan: Return to [facility]- [facility] PCP: Dr. Eddi Paulson Emergency Contact: Jayashree Man [facility] Conservator, ; [email or web address]. Address: Correct on FaceSheet
--- NOTE | 2025-04-20 15:35 | PC.SS ---
SS reported Obudsman due to nature of injury; SS contacted [phone] spoke to Prudence; SS filled out SOC 341 FAXED report to following numbers per Prudence: [phone] and [phone]
[2025-04-20 16:00] VITALS: BP 112/67; PULSE 82; RESP 19; TEMP 36.6; O2SAT 95
[2025-04-20 20:00] VITALS: BP 116/75; PULSE 79; RESP 17; TEMP 36.1; O2SAT 93
[2025-04-20 20:22] VITALS: PULSE 104; RESP 14; RESP 96
[2025-04-21] VITALS (8 sets, daily range): BP systolic 112–131; BP diastolic 55–76; PULSE 64–113; RESP 14–98; TEMP 36.1–36.8; O2SAT 95–97
--- NOTE | 2025-04-21 01:16 | ESCONSULT_ITS ---
RE: DARIEL PORTILLO : 1940 DATE OF CONSULTATION: 04/20/2025 CONSULTING PHYSICIAN: REASON FOR CONSULTATION: Evaluation of the patient for cardiac clearance for orthopedic surgery. CHIEF COMPLAINT: Fall and fracture of the hip HISTORY OF PRESENT ILLNESS: The patient is an 84-year-old female with a past medical history of mild hypertension, asthma and dementia. Came to the hospital as she fell while walking and she lost her balance. She tripped on her own feet, fell and landed on the left side. She suffered a fracture of the hip, left hip fracture. Recommended to have cardiac clearance for surgery. The patient is known to me. Has had a cardiac workup about 3-4 years ago in my office, showed a normal ejection fraction. No cardiac history. She does not complain of any chest pain or shortness of breath. No cardiac limitations or symptoms. Her EKG is within normal limits. I also reviewed a cardiac echo that was performed today, showed an ejection fraction of more than 65%. She is feeling comfortable. Has not had any chest pain or shortness of breath. MEDICATIONS: At home, she is on calcium, vitamin D, albuterol inhaler. ALLERGIES: MULTIPLE ALLERGIES LISTED. REVIEW OF SYSTEMS: Unremarkable. CARDIOVASCULAR: No chest pain or shortness of breath. GASTROINTESTINAL: No history of nausea or vomiting. PHYSICAL EXAMINATION: GENERAL: Well-nourished, acutely ill, chronically ill female, alert, awake, in acute distress. VITAL SIGNS: Her blood pressure is 140/90, pulse rate is 70, respirations 20, temperature normal, saturation is 98% on room air. HEENT: Head is atraumatic, normocephalic. Eyes normal. ENT normal. NECK: Supple. No JVD. Carotid pulse felt, but no bruits. CHEST: Symmetrical. LUNGS: Clear. HEART: Sounds S1 and S2 regular. No gallops or murmurs. ABDOMEN: Thin and soft. EXTREMITIES: No edema. GENITOURINARY AND RECTAL: Not performed. NEUROLOGIC: Normal. IMPRESSION/ASSESSMENT: 1. Intertrochanteric fracture of the left hip, requesting cardiac clearance. 2. History of dementia. 3. Normal echocardiogram. RECOMMENDATIONS: Based on clinical assessment, normal EKG, negative echo, certainly the patient has low risk for surgery, giving cardiac clearance. DT: 23:49:10 TT: 00:53:00 Ref: [id number] - TID: [id number]
[2025-04-21 05:47] LABS: Basophils # (Auto) 0.1 Thou/mm3 (0.0-0.2); Basophils % (Auto) 0 % (0-2.5); Eosinophils # (Auto) 0.1 Thou/mm3 (0.0-0.5); Eosinophils % (Auto) 1 % (0-10); Hematocrit 34.9 % (36.0-46.0); Hemoglobin 11.9 g/dL (12.0-16.0); Immature Granulocytes % (Auto) 1 % (0-0); Immature Granulocytes Auto 0.08 Thou/mm3 (0.00-0.00); Lymphocytes # (Auto) 2.5 Thou/mm3 (1.0-4.8); Lymphocytes % (Auto) 16 % (10-50); Mean Corpuscular HGB Conc 34.1 g/dl (31.0-37.0); Mean Corpuscular Hemoglobin 29.4 pg (25.0-35.0); Mean Corpuscular Volume 86 fL (80-100); Monocytes # (Auto) 1.6 Thou/mm3 (0.0-0.8); Monocytes % (Auto) 10 % (0-12); Neutrophils # (Auto) 11.1 Thou/mm3 (1.8-7.7); Neutrophils % (Auto) 72 % (37-80); Nucleated Red Blood Cell % 0 /100 WBC (0); Platelet Count 176 Thou/mm3 (140-440); RDW Standard Deviation 40.9 fL (36.4-46.3); Red Blood Count 4.05 Miln/mm3 (4.00-5.20); White Blood Count 15.3 Thou/mm3 (3.6-11.0)
[2025-04-21 06:14] LABS: Alanine Aminotransferase 72 U/L (10-49); Albumin, Serum 3.5 gm/dL (3.4-4.8); Albumin/Globulin Ratio 1.6 (1.2-2.2); Alkaline Phosphatase 89 U/L (46-116); Anion Gap 10 (7-16); BUN/Creatinine Ratio 26 Ratio (12-20); Bilirubin,Total 0.5 mg/dL (0.3-1.2); Blood Urea Nitrogen 23 mg/dL (9-23); Calcium 8.8 mg/dL (8.3-10.6); Calcium (Corrected) 9.2 mg/dL (8.5-10.1); Carbon Dioxide 27.2 mMol/L (20.0-31.0); Chloride 101 mMol/L (98-107); Creatinine (Component) 0.9 mg/dL (0.6-1.3); Estimated Creatinine Clearance 44.3 mL/min (>60); Globulin 2.2 gm/dL (2.3-3.5); Glucose 140 mg/dL (74-106); Osmolality,Calculated 281 (275-295); Potassium 4.3 mMol/L (3.4-5.1); Sodium 138 mMol/L (136-145); Total Protein 5.7 gm/dL (5.7-8.2); eGFR > 60 See Note
[2025-04-21] MEDS: MORPHINE SULF INJ 10 MG/ML VIAL 2 MG IVP (06:43)
--- NOTE | 2025-04-21 08:45 | ESPR_ITS ---
<Statement entered by James Montalvo MD - 04/21/25 13:40> Patient stable, was cleared by cardiology for surgery. Patient to have hip surgery by Dr. Koehler tomorrow. I discussed with and supervised the internship physician involved in the care of this patient. Patient assessment and plan was discussed with entire medicine team, including my attending. I agree with the assessment and plan as documented by internship doctor. Patient care was discussed with my attending physician Dr. Allan Montalvo, PGY-2 Documentation for date of: 04/21/25 Subjective Subjective Interval history: Patient seen and examined by the bedside. Patient is eating her breakfast, does not remember the circumstances of her fall, not oriented in time and place. She reports pain in her left hip. She was explained that she had a hip fracture and a possible plan of care. Patient said that she does not want to have surgery but she would do it if it is needed, saying that she has severe pain in her left hip. Cardiology cleared the patient for the surgery. Dr. Koehler is following the patient, surgery is planned for Monday. Exam Vital Signs Temp Pulse Resp BP Pulse Ox O2 Del Method O2 Flow Rate 97.8 F 87 18 122/60 96 Nasal Cannula 1.5 04/21/25 08:00 04/21/25 08:00 04/21/25 08:00 04/21/25 08:00 04/21/25 08:00 04/21/25 08:00 04/21/25 08:00 Narrative Exam Gen: Well-developed and well-nourished. HEENT: NCAT, PERRLA, EOMI, MMM, anicteric conjunctivae. CVS: normal S1 and S2. RRR. No M/R/G. Resp: CTA B/L. No rhonchi, rales, crackles or wheezing. Abd: soft, non-tender, non-distended. BS+ in all 4 quadrants. MSK: Movements in left extremity is restricted. Left lower extremity is externally rotated. No edema or rash. Neuro: CN II-XII grossly intact. Movements in left extremity is restricted. Alert and oriented x1. Psych: appropriate mood and affect. Objective Labs 04/22/25 04:44 04/22/25 04:44 Labs: Laboratory Results - last 24 hr 04/21/25 05:09 WBC 15.3 H RBC 4.05 Hgb 11.9 L Hct 34.9 L MCV 86 MCH 29.4 MCHC 34.1 RDW Std Deviation 40.9 Plt Count 176 D Neut % (Auto) 72 Lymph % (Auto) 16 [place] % (Auto) 10 Eos % (Auto) 1 Baso % (Auto) 0 Neut # (Auto) 11.1 H Lymph # (Auto) 2.5 [place] # (Auto) 1.6 H Eos # (Auto) 0.1 Baso # (Auto) 0.1 Immature Gran # (Auto) 0.08 H Absolute Nucleated RBC 0.00 Immature Gran % 1 H Nucleated RBC % 0 Sodium 138 Potassium 4.3 D Chloride 101 Carbon Dioxide 27.2 Anion Gap 10 BUN 23 Creatinine 0.9 Estim Creat Clear Calc 44.3 L eGFR > 60 BUN/Creatinine Ratio 26 H Glucose 140 H Calculated Osmolality 281 Calcium 8.8 Corrected Calcium 9.2 Magnesium 2.0 Total Bilirubin 0.5 ALT 72 H Alkaline Phosphatase 89 D Total Protein 5.7 Albumin 3.5 Globulin 2.2 L Albumin/Globulin Ratio 1.6 Quality Measures Quality Measures VTE prophylaxis Advance care planning discussed with:: other Assessment & Plan Assessment Current Active Medications: Generic Name Dose Route Start Last Admin Trade Name Freq PRN Reason Stop Dose Admin Acetaminophen 650 mg 04/20/25 11:03 Acetaminophen 325 Mg Tablet PO 05/19/25 21:52 Q6H PRN pain and Fever >100.4 Hydrocodone Bitart/Acetaminophen 1 tab 04/19/25 21:53 Hydrocodone/Apap 5/325 Tablet PO 04/24/25 21:52 Q4HR PRN PAIN SCALE 4-6 (Moderate Albuterol/Ipratropium 3 ml 04/19/25 21:53 Albuterol/Ipratropium (Duoneb) Rt Monserrat 3 Ml Nebu INH 05/19/25 22:59 Q4HRRT PRN SOB or wheezing Morphine Sulfate 2 mg 04/19/25 21:53 04/21/25 06:43 Morphine Sulf Inj 10 Mg/Ml Vial IVP 04/24/25 21:52 2 mg Q2H PRN Administration PAIN SCALE 7-10 (Severe Ondansetron HCl 4 mg 04/19/25 21:53 Ondansetron Inj 2 Mg/Ml Inj 2 Ml IVP 05/19/25 21:52 Q6H PRN NAUSEA OR VOMITING Protocol Polyethylene Glycol 17 gm 04/21/25 09:00 Polyethylene Glycol 17 Gm Packet PO 05/21/25 08:59 QDAY KATY Plan The patient is a 84-year-old female with past medical history of asthma and possible dementia was admitted to the hospital on 04/19/2025 for left hip fracture. #Left hip fracture secondary to #Mechanical fall Patient had a fall today and landed on her left hip resulting in left hip fracture Orthopedic surgeon was consulted by the ED provider and wanted the patient to be admitted for possible surgery. Imaging included x-ray of the femur and x-ray of the head which both showed left hip fracture There are no bruises and patient's legs does seem shorter than the right, but pedal pulses were present and no signs of ischemia PTT and PT are normal. Plan: -Pain control manage 1 with Tylenol 650, [place] 5, and morphine 2 mg -Physical therapy after the surgery -Cardiology consulted, patient cleared for the surgery -Orthopedic surgeon consulted, appreciate recommendations #Leukocytosis WBC 18.9 on admission likely reactive No fevers and no signs of infection Plan: -Will continue to monitor. #Possible dementia #Cognitive deficit Patient appears to be confused. According to the SNF, she is confused at the baseline. Plan: - will continue to monitor Disposition: medsurg Diet: NPO after midnight for surgery on Monday GI prophylaxis: not indicated DVT prophylaxis: SCDs Code: Full code Plan of care discussed with attending Dr. Lemus and PGY-2 Dr. Montalvo. Donna Ordonez MD, PGY 1. Attending Provider Attestation/Addendum Rekha, Bianca Lemus DO, attest that I was physically present for the suárez portions of the service and evaluated the patient with the resident and I reviewed and discussed the case with the resident and agree with the resident's findings and plans of care as documented above Patient seen and evaluated this AM. Patient complains of more pain in her LLE, but controlled with pain medication. Patient has been cleared from cardiac standpoint for surgery. Scheduled for repair of left hip tomorrow. N.p.o. after midnight.
[2025-04-21] MEDS: POLYETHYLENE GLYCOL 17 GM PACKET PO (09:30)
[2025-04-21] MEDS: HYDROcodone/APAP 5/325 TABLET 1 TAB PO ×2 (09:34→15:10)
--- NOTE | 2025-04-21 15:36 | PC.SS ---
rounding note: Patient recently fell at [facility]. Patient is conserved by [facility]. Surgery pending for Monday. APS report was filed by weekend staff due to nature of fall. Referred to elisha.
[2025-04-22] VITALS (13 sets, daily range): BP systolic 101–146; BP diastolic 50–81; PULSE 74–99; RESP 12–99; TEMP 36.1–37.1; O2SAT 92–99
--- NOTE | 2025-04-22 02:36 | ESPR_ITS ---
RE: USHA ALDANA : 1940 DATE OF SERVICE: 04/21/2025 SUBJECTIVE: Usha Aldana seen for cardiovascular assessment and then she is admitted to the hospital with fracture of the hip, underwent workup including cardiac echo showed normal ejection fraction. Based on clinical assessment, she has low risk for surgery, awaiting the surgery by __ scheduled for tomorrow. Clinically today, she is stable. OBJECTIVE: Vital Signs: Blood pressure is 122/60, pulse rate is 87, respirations 18, temperature normal, saturation is 96% on nasal cannula 1.5 liters. HEENT: Head is atraumatic. Neck: Supple. Lungs: Decreased breath sounds. No rales. Heart: S1 and S2 regular, distant. Abdomen: Thin the soft. Extremities: No edema. IMPRESSION: Intertrochanteric fracture of the hip, undergoing evaluation for surgery clearance. RECOMMENDATIONS: 1. The patient is reassured about these findings. 2. The patient will continue to proceed with the hip surgery tomorrow as scheduled. DT: 23:54:35 TT: 01:58:00 Ref: [id number] - TID: [id number] MTDD
[2025-04-22 05:20] LABS: Basophils # (Auto) 0.1 Thou/mm3 (0.0-0.2); Basophils % (Auto) 0 % (0-2.5); Eosinophils # (Auto) 0.4 Thou/mm3 (0.0-0.5); Eosinophils % (Auto) 3 % (0-10); Hematocrit 30.6 % (36.0-46.0); Hemoglobin 10.7 g/dL (12.0-16.0); Immature Granulocytes % (Auto) 0 % (0-0); Immature Granulocytes Auto 0.06 Thou/mm3 (0.00-0.00); Lymphocytes # (Auto) 2.1 Thou/mm3 (1.0-4.8); Lymphocytes % (Auto) 14 % (10-50); Mean Corpuscular Hemoglobin 29.3 pg (25.0-35.0); Mean Corpuscular Volume 84 fL (80-100); Monocytes # (Auto) 1.5 Thou/mm3 (0.0-0.8); Monocytes % (Auto) 10 % (0-12); Neutrophils # (Auto) 10.7 Thou/mm3 (1.8-7.7); Neutrophils % (Auto) 73 % (37-80); Nucleated Red Blood Cell % 0 /100 WBC (0); Platelet Count 181 Thou/mm3 (140-440); RDW Standard Deviation 40.7 fL (36.4-46.3); Red Blood Count 3.65 Miln/mm3 (4.00-5.20); White Blood Count 14.7 Thou/mm3 (3.6-11.0)
[2025-04-22 05:49] LABS: Alanine Aminotransferase 47 U/L (10-49); Albumin, Serum 3.5 gm/dL (3.4-4.8); Albumin/Globulin Ratio 1.6 (1.2-2.2); Alkaline Phosphatase 89 U/L (46-116); Anion Gap 10 (7-16); BUN/Creatinine Ratio 27 Ratio (12-20); Bilirubin,Total 0.6 mg/dL (0.3-1.2); Blood Urea Nitrogen 19 mg/dL (9-23); Calcium 8.6 mg/dL (8.3-10.6); Carbon Dioxide 28.5 mMol/L (20.0-31.0); Chloride 98 mMol/L (98-107); Creatinine (Component) 0.7 mg/dL (0.6-1.3); Globulin 2.2 gm/dL (2.3-3.5); Glucose 144 mg/dL (74-106); Magnesium 1.8 mg/dL (1.6-2.6); Osmolality,Calculated 277 (275-295); Phosphorous 1.7 mg/dL (2.4-5.1); Sodium 136 mMol/L (136-145); Total Protein 5.7 gm/dL (5.7-8.2); eGFR > 60 See Note
[2025-04-22] MEDS: SOD PHOS ADDITIVE 22.5 MMOL in SODIUM CHLORIDE 0.9% 500 ML 500 ML 82.778 MMOL IV (08:43)
[2025-04-22] MEDS: HYDROcodone/APAP 5/325 TABLET 1 TAB PO ×2 (08:44→12:53)
--- NOTE | 2025-04-22 08:45 | CHAP ---
Visited briefly with patient and had prayer.
--- NOTE | 2025-04-22 09:30 | ESPR_ITS ---
<Statement entered by James Montalvo MD - 04/23/25 02:18> I discussed with and supervised the communications marketing intern physician involved in the care of this patient. Patient assessment and plan was discussed with entire medicine team, including my attending. I agree with the assessment and plan as documented by communications marketing intern doctor. Patient care was discussed with my attending physician Dr. Allan Montalvo, PGY-2 Documentation for date of: 04/22/25 Subjective Subjective Interval history: Patient was seen and examined by the bedside. No acute overnight events. Patient reports pain in her hip. Pending hip surgery today. Exam Vital Signs Temp Pulse Resp BP Pulse Ox O2 Del Method O2 Flow Rate 97.1 F 93 18 124/67 92 L Room Air 2 04/22/25 08:00 04/22/25 08:00 04/22/25 08:00 04/22/25 08:00 04/22/25 08:00 04/22/25 08:00 04/22/25 04:00 Narrative Exam Gen: Well-developed and well-nourished. HEENT: NCAT, PERRLA, EOMI, MMM, anicteric conjunctivae. CVS: normal S1 and S2. RRR. No M/R/G. Resp: CTA B/L. No rhonchi, rales, crackles or wheezing. Abd: soft, non-tender, non-distended. BS+ in all 4 quadrants. MSK: Movements in left extremity is restricted. Left lower extremity is externally rotated. No edema or rash. Neuro: CN II-XII grossly intact. Movements in left extremity is restricted. Alert and oriented x1. Psych: appropriate mood and affect. Objective Labs 04/23/25 04:51 04/23/25 04:51 Labs: Laboratory Results - last 24 hr 04/19/25 04/22/25 22:00 04:44 WBC 14.7 H RBC 3.65 L Hgb 10.7 L Hct 30.6 L MCV 84 MCH 29.3 MCHC 35.0 RDW Std Deviation 40.7 Plt Count 181 Neut % (Auto) 73 Lymph % (Auto) 14 [place] % (Auto) 10 Eos % (Auto) 3 Baso % (Auto) 0 Neut # (Auto) 10.7 H Lymph # (Auto) 2.1 [place] # (Auto) 1.5 H Eos # (Auto) 0.4 Baso # (Auto) 0.1 Immature Gran # (Auto) 0.06 H Absolute Nucleated RBC 0.00 Immature Gran % 0 Nucleated RBC % 0 Sodium 136 Potassium 4.0 Chloride 98 Carbon Dioxide 28.5 Anion Gap 10 BUN 19 Creatinine 0.7 Estim Creat Clear Calc 57.0 L eGFR > 60 BUN/Creatinine Ratio 27 H Glucose 144 H Calculated Osmolality 277 Calcium 8.6 Corrected Calcium 9.0 Phosphorus 1.7 L Magnesium 1.8 Total Bilirubin 0.6 ALT 47 Alkaline Phosphatase 89 Total Protein 5.7 Albumin 3.5 Globulin 2.2 L Albumin/Globulin Ratio 1.6 Blood Type O Positive Antibody Screen NEGATIVE Crossmatch See Detail Blood Bank Wristband ID Yes Quality Measures Quality Measures VTE prophylaxis Advance care planning discussed with:: other Assessment & Plan Assessment Current Active Medications: Generic Name Dose Route Start Last Admin Trade Name Freq PRN Reason Stop Dose Admin Acetaminophen 650 mg 04/20/25 11:03 Acetaminophen 325 Mg Tablet PO 05/19/25 21:52 Q6H PRN pain and Fever >100.4 Hydrocodone Bitart/Acetaminophen 1 tab 04/19/25 21:53 04/22/25 08:44 Hydrocodone/Apap 5/325 Tablet PO 04/24/25 21:52 1 tab Q4HR PRN Administration PAIN SCALE 4-6 (Moderate Albuterol/Ipratropium 3 ml 04/19/25 21:53 Albuterol/Ipratropium (Duoneb) Rt [place] 3 Ml Nebu INH 05/19/25 22:59 Q4HRRT PRN SOB or wheezing Sodium Phosphate 22.5 mmol/ 507.5 mls @ 82.778 mls/hr 04/22/25 07:54 04/22/25 08:43 Sodium Chloride IV 04/22/25 14:01 82.778 mls/hr X1 ONE Administration Morphine Sulfate 2 mg 04/19/25 21:53 04/21/25 06:43 Morphine Sulf Inj 10 Mg/Ml Vial IVP 04/24/25 21:52 2 mg Q2H PRN Administration PAIN SCALE 7-10 (Severe Ondansetron HCl 4 mg 04/19/25 21:53 Ondansetron Inj 2 Mg/Ml Inj 2 Ml IVP 05/19/25 21:52 Q6H PRN NAUSEA OR VOMITING Protocol Polyethylene Glycol 17 gm 04/21/25 09:00 04/21/25 09:30 Polyethylene Glycol 17 Gm Packet PO 05/21/25 08:59 17 gm QDAY KATY Administration Plan The patient is a 84-year-old female with past medical history of asthma and possible dementia was admitted to the hospital on 04/19/2025 for left hip fracture. #Left hip fracture secondary to #Mechanical fall Patient had a fall today and landed on her left hip resulting in left hip fracture Orthopedic surgeon was consulted by the ED provider and wanted the patient to be admitted for possible surgery. Imaging included x-ray of the femur and x-ray of the head which both showed left hip fracture There are no bruises and patient's legs does seem shorter than the right, but pedal pulses were present and no signs of ischemia PTT and PT are normal. Plan: -Pain control manage 1 with Tylenol 650, [place] 5, and morphine 2 mg -Physical therapy after the surgery -Cardiology consulted, patient cleared for the surgery -Orthopedic surgeon consulted, appreciate recommendations #Leukocytosis WBC 18.9 on admission likely reactive No fevers and no signs of infection Plan: -Will continue to monitor. #Possible dementia #Cognitive deficit Patient appears to be confused. According to the SNF, she is confused at the baseline. Plan: - will continue to monitor Disposition: medsurg Diet: NPO after midnight for surgery on Monday GI prophylaxis: not indicated DVT prophylaxis: SCDs Code: Full code Plan of care discussed with attending Dr. Lemus and PGY-2 Dr. Montalvo. Donna Ordonez MD, PGY 1. Attending Provider Attestation/Addendum Bianca Da Silva DO, attest that I was physically present for the suárez portions of the service and evaluated the patient with the resident and I reviewed and discussed the case with the resident and agree with the resident's findings and plans of care as documented above Patient seen and evaluated this AM. No acute events overnight. Patient is scheduled for repair of left hip at 2pm this afternoon.
--- NOTE | 2025-04-22 09:31 | PC.NURSE ---
phone calls to [facility] office [phone] re: consent for surgery, left 2 messages, 1 @ 8 and 1 @ 9:30
--- NOTE | 2025-04-22 13:51 | PC.SS ---
SS faxed Original SOC [phone] to [facility] via [facility]M Fax.
--- NOTE | 2025-04-22 14:45 | XR_ITS ---
Examination: Left femur 3 views Fluoroscopy Date and time: April 22, 2025 1651 hours INDICATIONS: Acute angulated intertrochanteric fracture left hip April 19, 2025, operative reduction internal fixation of fractured today TECHNIQUE AND FINDINGS: AP lateral left femur 3 views Operative reduction internal fixation left hip fracture with satisfactory alignment Orthopedic hardware including intramedullary femoral bladimir satisfactory position Fluoroscopy 0.59 minute radiation dose 3.30 mg IMPRESSION: Operative reduction internal fixation left hip fracture with satisfactory alignment
--- NOTE | 2025-04-22 17:08 | XR_ITS ---
Examination:Left hip AP, lateral, AP pelvis 3 views, AP lateral left femur 2 views Technique: Hip AP lateral, AP pelvis, 3 views, AP lateral left femur 2 views total 5 views Exam date and time:April 22, 2025 1752 hours INDICATIONS: Acute angulated intertrochanteric fracture left hip April 19, 2025, postop today reduction internal fixation hip fracture. FINDINGS: Postop reduction internal fixation left hip fracture with satisfactory alignment Orthopedic hardware including long intramedullary femoral bladimir satisfactory position. IMPRESSION: Postop reduction internal fixation left hip fracture with satisfactory alignment
--- NOTE | 2025-04-22 17:10 | SUR.PHASEI ---
Arrived to recovery bay 1 via bed. Report received from Dasia CARRILLO and Dr. Kline. Resting with eyes open. No s/o distress or discomfort. Respiration even and unlabored. Dressing to left hip C/D/I. Brink cath intact, draining clear tonja urine. Responds to name and states she lives in [place]. Unable to states time or date and location.
--- NOTE | 2025-04-22 17:32 | ESCONSULT_ITS ---
RE: DARIEL PORTILLO : 1940 DATE OF CONSULTATION: 04/20/[address] Pitts for asking me to consult the patient, whom I saw on 04/20/2025. As per history available, patient fell down and injured her left hip region. The patient was brought to emergency room. X-ray was obtained, which revealed displaced intertrochanteric fracture of the left hip. The patient was admitted for further management. PAST MEDICAL HISTORY: No history of diabetes mellitus, high blood pressure, asthma, seizure, chest pain or myocardial infarction. PAST SURGICAL HISTORY: Hysterectomy. DRUG HISTORY: The patient is on: 1. Calcium. 2. Multivitamin. 3. Albuterol. ALLERGIES: NIL KNOWN. FAMILY HISTORY AND SOCIAL HISTORY: The patient has slight dementia. Rest noncontributory. PHYSICAL EXAMINATION: GENERAL: Normal built lady. VITAL SIGNS: Pulse 72 per minute and blood pressure 130/86. NECK: Soft and supple. No mass felt. Trachea is centrally placed. CARDIOVASCULAR SYSTEM: First and second heart sounds are normal. No murmur heard. RESPIRATORY SYSTEM: Bilateral vesicular breath sounds. Chest clear. ABDOMEN: Soft. No mass felt. Bowel sounds present. EXTREMITIES: Left lower limb examination revealed tenderness in the left groin area. The left lower limb is externally rotated and shortened. X-ray confirmed displaced intertrochanteric fracture of the left hip. I discussed the procedure with patient and the family. The patient needs fixation with the nail and screw. Detailed discussion took place. With the help of pictures and diagram, it was explained to the patient and the family. Risk with anesthesia includes, but not limited to reaction to anesthetic agents, cardiac arrest or rarely it might be fatal. Risk with operation includes infection and if that happens, patient will need further surgical procedure. Other risks include delayed healing, wound dehiscence, etc. No guarantee is given regarding outcome of the procedure and/or relief of symptoms. Detailed discussion took place. Possibility of blood transfusion was discussed. The patient was explained the risk with blood transfusion. Family and patient want to have blood transfusion when it is absolutely necessary. Cardiac clearance was obtained from Dr. Getachew Menjivar and has been cleared for surgical procedure. Surgery booked for 04/22/2025. Appropriate lab work was done. DT: 16:48:37 TT: 17:31:00 Ref: [id number] - TID: [id number]
--- NOTE | 2025-04-22 17:36 | SUR.PHASEI ---
Transferred to room 367 via bed, forrest well. No c/o or s/o pain, discomfort or distress. Dressing to left hip remains C/D/I. Brink cath secure and intact, draining clear light tonja color urine. Call light within reach. Bed break applied. Bed alarm turned on. O2 @ 2L via NC connected to wall. Nenita CARRILLO made aware that patient has returned to room.
--- NOTE | 2025-04-22 17:36 | SUR.PHASEI ---
SBAR Report given to Elodia CARRILLO via phone, all questions answered.
[2025-04-22] MEDS: ACETAMINOPHEN IVPB 1,000 MG/100 ML VIAL 250 MG IV (17:53)
[2025-04-23] VITALS (7 sets, daily range): BP systolic 102–123; BP diastolic 48–73; PULSE 69–103; RESP 16–18; TEMP 36.3–36.6; O2SAT 94–98; BMI 23.1; BMI 11.0; BMI 12.0
--- NOTE | 2025-04-23 00:27 | ESPR_ITS ---
RE: DARIEL PORTILLO : 1940 DATE OF SERVICE: 04/22/2025 The patient is an 84-year-old lady admitted to the hospital with fracture of the left hip, scheduled for surgery. Has not had surgery. Does not complain of any chest pain or shortness of breath. Scheduled for surgery _ 04/22/2025. PHYSICAL EXAMINATION: Vital Signs: Blood pressure 108/50, pulse 74. Neck: Supple. No JVD. Lungs: Decreased breath sounds. No rales or rhonchi. Heart: S1, S2 regular. Abdomen: Thin and soft. Extremities: No edema. IMPRESSION/ASSESSMENT: Fracture of the hip, scheduled for surgery. RECOMMENDATIONS: Proceed with surgery. Low cardiac risk for surgery based on clinical assessment and echo findings. DT: 21:49:27 TT: 22:52:00 Ref: [id number] - TID: [id number] MTDD
[2025-04-23] MEDS: ACETAMINOPHEN IVPB 1,000 MG/100 ML VIAL 250 MG IV ×2 (01:14→05:27)
[2025-04-23 06:02] LABS: Basophils % (Auto) 0 % (0-2.5); Eosinophils % (Auto) 0 % (0-10); Hematocrit 28.4 % (36.0-46.0); Hemoglobin 9.6 g/dL (12.0-16.0); Immature Granulocytes % (Auto) 1 % (0-0); Immature Granulocytes Auto 0.05 Thou/mm3 (0.00-0.00); Lymphocytes # (Auto) 0.8 Thou/mm3 (1.0-4.8); Lymphocytes % (Auto) 8 % (10-50); Mean Corpuscular HGB Conc 33.8 g/dl (31.0-37.0); Mean Corpuscular Hemoglobin 29.6 pg (25.0-35.0); Mean Corpuscular Volume 88 fL (80-100); Monocytes # (Auto) 0.6 Thou/mm3 (0.0-0.8); Monocytes % (Auto) 6 % (0-12); Neutrophils % (Auto) 85 % (37-80); Nucleated Red Blood Cell % 0 /100 WBC (0); Platelet Count 161 Thou/mm3 (140-440); RDW Standard Deviation 41.2 fL (36.4-46.3); Red Blood Count 3.24 Miln/mm3 (4.00-5.20); White Blood Count 9.4 Thou/mm3 (3.6-11.0)
[2025-04-23 06:24] LABS: Alanine Aminotransferase 79 U/L (10-49); Albumin, Serum 3.3 gm/dL (3.4-4.8); Albumin/Globulin Ratio 1.6 (1.2-2.2); Alkaline Phosphatase 96 U/L (46-116); Anion Gap 9 (7-16); BUN/Creatinine Ratio 24 Ratio (12-20); Bilirubin,Total 0.6 mg/dL (0.3-1.2); Blood Urea Nitrogen 17 mg/dL (9-23); Calcium 8.1 mg/dL (8.3-10.6); Calcium (Corrected) 8.7 mg/dL (8.5-10.1); Carbon Dioxide 29.6 mMol/L (20.0-31.0); Chloride 100 mMol/L (98-107); Creatinine (Component) 0.7 mg/dL (0.6-1.3); Globulin 2.1 gm/dL (2.3-3.5); Glucose 175 mg/dL (74-106); Magnesium 1.7 mg/dL (1.6-2.6); Osmolality,Calculated 283 (275-295); Phosphorous 2.8 mg/dL (2.4-5.1); Potassium 4.3 mMol/L (3.4-5.1); Sodium 139 mMol/L (136-145); Total Protein 5.4 gm/dL (5.7-8.2); eGFR > 60 See Note
[2025-04-23] MEDS: POLYETHYLENE GLYCOL 17 GM PACKET PO (08:06)
--- NOTE | 2025-04-23 09:32 | ESOP_ITS ---
Date of Procedure 04/22/25 Pre Op Diagnosis Displaced intertrochanteric fracture left hip Post Op Diagnosis Same Procedure Left trochanteric fixation nail. Synthes implant. Femur size 360 mm x 12 mm diameter. Helical blade size 95 mm Findings Refer dictation Procedure Description The patient was given spinal anesthesia. Was satisfactory anesthesia achieved patient was brought on the fracture table. The fracture was then manipulated and was reduced. Position was checked under C arm and both AP and lateral and found to be good Pat was thoroughly prepped and draped. Intravenous antibiotics was given at the time of anesthesia a skin incision was made about 2 inches proximal to greater trochanter extending proximally for a 1 inch or so and. Following that the tensor fascia heber was incised up to the greater trochanteric area Following that guidepin was passed through the top of the greater trochanter into the marrow canal. Once satisfactory position was achieved and checked in the C arm reaming up to the lesser trochanteric was done. Pin was removed and guidewire wire was passed. Once satisfactory position achieved then the length of the nail was measured. Decision was made to use size 360 mm long nail. Following that reaming up to 13.5 mm was then Final decision was made to use size 360 mm x 12 mm diameter nail Above-mentioned size nail was advanced into the marrow canal. Once satisfactory position achieved then the placement zig for the helical blade was placed. The skin is was made over the lateral aspect. The tensor fascia heber was incised. Following that the jig was placed adjacent to the lateral cortex of the femur. Guidepin was passed up to the subchondral portion of the head of the femur. Once satisfactory position was achieved then length of the helical blade was measured and decided to be 95 mm Reaming was done. After that size 95 mm long helical blade was mounted and advanced to the marrow canal. Once satisfactory position achieved then placement zig for the helical blade was removed With the help of flexible screwdriver the top lift compressor was tightened. Following that with the help of fixed a screwdriver the placement zig for nail was removed Wound was irrigated with antibiotic solution every 4 to 5 minutes Patient tolerated procedure well. Lausier was done with help of 2-0 Vicryl in an interrupted fashion. Skin was closed with shy Patient tolerated procedure well. Estimated blood loss 25 mL. Prognosis in this case is good Anesthesia spinal Pathology / specimen None Estimated Blood Loss 25 Surgeon Zeeshan Brown MD Surgical Staff Operation Date: 04/22/25 15:00 Case Staff Anesthesiologist: Julio Kline RN First Assistant: Ioana Neely
--- NOTE | 2025-04-23 10:45 | ESPR_ITS ---
RE: DARIEL PORTILLO : 1940 DATE OF SERVICE: 04/23/2025 SUBJECTIVE: The patient was seen by me again on 04/23/2025. The patient is status post left TFN. The patient is doing fine. The patient will be mobilized with the help of physical therapist. The patient is advised full weight bear. Anticoagulated medications are also started. The patient's hemoglobin is 9.6 and white cell count is 9.4. The patient will be discharged to a [facility] or if the family want, they can take the patient home if their home support is quite good. DT: 09:37:49 TT: 10:43:00 Ref: [id number] - TID: [id number]
[2025-04-23] MEDS: HYDROcodone/APAP 5/325 TABLET 1 TAB PO (11:33)
--- NOTE | 2025-04-23 11:48 | ESPR_ITS ---
<Statement entered by James Montalvo MD - 04/23/25 22:46> I discussed with and supervised the environmental intern physician involved in the care of this patient. Patient assessment and plan was discussed with entire medicine team, including my attending. I agree with the assessment and plan as documented by environmental intern doctor. Patient care was discussed with my attending physician Dr. Allan Montalvo, PGY-2 Documentation for date of: 04/23/25 Subjective Subjective Interval history: Patient was seen and examined by the bedside. Patient underwent left distal hip fracture repait, day 1 after trochanteric nail placement. Patient reports minimal pain. Will start physical therapy and DVT prophylaxis. Exam Vital Signs Temp Pulse Resp BP Pulse Ox O2 Del Method O2 Flow Rate 97.7 F 71 18 102/48 L 97 Nasal Cannula 2 04/23/25 08:00 04/23/25 08:00 04/23/25 08:00 04/23/25 08:00 04/23/25 08:00 04/23/25 04:00 04/22/25 21:44 Narrative Exam Gen: Well-developed and well-nourished. HEENT: NCAT, PERRLA, EOMI, MMM, anicteric conjunctivae. CVS: normal S1 and S2. RRR. No M/R/G. Resp: CTA B/L. No rhonchi, rales, crackles or wheezing. Abd: soft, non-tender, non-distended. BS+ in all 4 quadrants. MSK: Movements in left extremity is restricted. No edema or rash. Neuro: CN II-XII grossly intact. Movements in left extremity is restricted. Alert and oriented x1. Psych: appropriate mood and affect. Objective Labs 04/24/25 05:34 04/24/25 05:34 Labs: Laboratory Results - last 24 hr 04/19/25 04/23/25 22:00 04:51 WBC 9.4 D RBC 3.24 L Hgb 9.6 L Hct 28.4 L MCV 88 MCH 29.6 MCHC 33.8 RDW Std Deviation 41.2 Plt Count 161 Neut % (Auto) 85 H Lymph % (Auto) 8 L [place] % (Auto) 6 Eos % (Auto) 0 Baso % (Auto) 0 Neut # (Auto) 8.0 H Lymph # (Auto) 0.8 L [place] # (Auto) 0.6 Eos # (Auto) 0.0 Baso # (Auto) 0.0 Immature Gran # (Auto) 0.05 H Absolute Nucleated RBC 0.00 Immature Gran % 1 H Nucleated RBC % 0 Sodium 139 Potassium 4.3 Chloride 100 Carbon Dioxide 29.6 Anion Gap 9 BUN 17 Creatinine 0.7 Estim Creat Clear Calc 57.0 L eGFR > 60 BUN/Creatinine Ratio 24 H Glucose 175 H Calculated Osmolality 283 Calcium 8.1 L Corrected Calcium 8.7 Phosphorus 2.8 Magnesium 1.7 Total Bilirubin 0.6 ALT 79 H Alkaline Phosphatase 96 Total Protein 5.4 L Albumin 3.3 L Globulin 2.1 L Albumin/Globulin Ratio 1.6 Crossmatch See Detail Quality Measures Quality Measures VTE prophylaxis Advance care planning discussed with:: other Assessment & Plan Assessment Current Active Medications: Generic Name Dose Route Start Last Admin Trade Name Freq PRN Reason Stop Dose Admin Acetaminophen 650 mg 04/20/25 11:03 Acetaminophen 325 Mg Tablet PO 05/19/25 21:52 Q6H PRN pain and Fever >100.4 Hydrocodone Bitart/Acetaminophen 1 tab 04/19/25 21:53 04/23/25 11:33 Hydrocodone/Apap 5/325 Tablet PO 04/24/25 21:52 1 tab Q4HR PRN Administration PAIN SCALE 4-6 (Moderate Albuterol/Ipratropium 3 ml 04/19/25 21:53 Albuterol/Ipratropium (Duoneb) Rt Monserrat 3 Ml Nebu INH 05/19/25 22:59 Q4HRRT PRN SOB or wheezing Aspirin 81 mg 04/23/25 21:00 Aspirin Ec 81 Mg Tabec PO 05/23/25 20:59 BID KATY Morphine Sulfate 2 mg 04/19/25 21:53 04/21/25 06:43 Morphine Sulf Inj 10 Mg/Ml Vial IVP 04/24/25 21:52 2 mg Q2H PRN Administration PAIN SCALE 7-10 (Severe Ondansetron HCl 4 mg 04/19/25 21:53 Ondansetron Inj 2 Mg/Ml Inj 2 Ml IVP 05/19/25 21:52 Q6H PRN NAUSEA OR VOMITING Protocol Polyethylene Glycol 17 gm 04/21/25 09:00 04/23/25 08:06 Polyethylene Glycol 17 Gm Packet PO 05/21/25 08:59 17 gm QDAY KATY Administration Plan The patient is a 84-year-old female with past medical history of asthma and possible dementia was admitted to the hospital on 04/19/2025 for left hip fracture. #S/p trochanteric nail fixation 04/22/25 #Left hip fracture secondary to #Mechanical fall Patient had a fall today and landed on her left hip resulting in left hip fracture Orthopedic surgeon was consulted by the ED provider and wanted the patient to be admitted for possible surgery. Imaging included x-ray of the femur and x-ray of the head which both showed left hip fracture There are no bruises and patient's legs does seem shorter than the right, but pedal pulses were present and no signs of ischemia PTT and PT are normal. Plan: -Pain control manage 1 with Tylenol 650, [place] 5, and morphine 2 mg -Physical therapy -Cardiology consulted, patient cleared for the surgery -Orthopedic surgeon is following, appreciate recs #Leukocytosis, resolved WBC 18.9 on admission likely reactive No fevers and no signs of infection Plan: -Will continue to monitor. #Possible dementia #Cognitive deficit Patient appears to be confused. According to the SNF, she is confused at the baseline. Plan: - will continue to monitor Disposition: medsurg Diet: regular diet GI prophylaxis: not indicated DVT prophylaxis: aspirin 81 mg BID Code: Full code Plan of care discussed with attending Dr. Lemus and PGY-2 Dr. Montalvo. Donna Ordonez MD, PGY 1. Attending Provider Attestation/Addendum Rekha, Bianca Lemus DO, attest that I was physically present for the suárez portions of the service and evaluated the patient with the resident and I reviewed and discussed the case with the resident and agree with the resident's findings and plans of care as documented above Patient seen and evaluated this Am. Patient reports mild pain, controlled with pain medication. No acute events overnight. Pending physical therapy and will start on Aspirin 81mg PO BID.
--- NOTE | 2025-04-23 14:53 | PC.SS ---
Rounding note: patient is day 1 post op. Plan is to d/c in 1-2 days back to [facility].
--- NOTE | 2025-04-23 19:30 | PC.NURSE ---
pt is looking for her wedding ring- 2 rings, a yessenia and a gold ring. rn looked in the room and closet, did not find any ring. Per pt had a lot of friends visit during the day but she knows them. They are from her [employer] and wouldn''t take her ring. Advised pt to check with her friends in the morning when they come visit her. Advised pt, will have staff in am will check with surgery to check in their locker.
[2025-04-23] MEDS: ASPIRIN EC 81 MG TABEC PO (22:21)
[2025-04-24] VITALS (9 sets, daily range): BP systolic 107–118; BP diastolic 51–68; PULSE 76–93; RESP 17–95; TEMP 36.2–37.6; O2SAT 92–98; BMI 11.0; BMI 12.0
--- NOTE | 2025-04-24 00:55 | ESPR_ITS ---
RE: USHA ALDANA : 1940 DATE OF SERVICE: 04/23/2025 Usha Aldana is an 84-year-old elderly lady admitted to the hospital with fracture of the hip, underwent surgery successfully by Dr. Brown. No problem postoperatively, no complications. Continues to feel well. No shortness of breath or chest pain. The patient does not have any major issues postoperatively so far. PHYSICAL EXAMINATION: Vital Signs: Blood pressure 102/48. Pulse rate is 70. Respirations 18. Temperature normal. Pulse ox 98%. HEENT: Head is atraumatic. Neck: Supple. Lungs: Decreased breath sounds. Heart: S1 and S2 regular, no gallop. Abdomen: Thin the soft. Extremities: Mild edema. IMPRESSION/ASSESSMENT: 1. Fracture of the hip, underwent surgery successfully, no complications. 2. Mechanical fall. No syncope. 3. Dementia. RECOMMENDATIONS: Cardiovascularly, the patient is postoperatively doing quite well so far and appears to be recovering well following surgery with no complications. DT: 23:40:53 TT: 00:49:00 Ref: [id number] - TID: [id number]
[2025-04-24] MEDS: HYDROcodone/APAP 5/325 TABLET 1 TAB PO ×2 (04:30→09:07)
[2025-04-24 06:14] LABS: Basophils % (Auto) 0 % (0-2.5); Eosinophils # (Auto) 0.1 Thou/mm3 (0.0-0.5); Eosinophils % (Auto) 1 % (0-10); Hematocrit 27.6 % (36.0-46.0); Hemoglobin 9.1 g/dL (12.0-16.0); Immature Granulocytes % (Auto) 1 % (0-0); Immature Granulocytes Auto 0.06 Thou/mm3 (0.00-0.00); Lymphocytes # (Auto) 2.3 Thou/mm3 (1.0-4.8); Lymphocytes % (Auto) 19 % (10-50); Mean Corpuscular Hemoglobin 29.2 pg (25.0-35.0); Mean Corpuscular Volume 89 fL (80-100); Monocytes # (Auto) 1.1 Thou/mm3 (0.0-0.8); Monocytes % (Auto) 9 % (0-12); Neutrophils # (Auto) 8.6 Thou/mm3 (1.8-7.7); Neutrophils % (Auto) 70 % (37-80); Nucleated Red Blood Cell % 0 /100 WBC (0); Platelet Count 201 Thou/mm3 (140-440); RDW Standard Deviation 42.9 fL (36.4-46.3); Red Blood Count 3.12 Miln/mm3 (4.00-5.20); White Blood Count 12.2 Thou/mm3 (3.6-11.0)
[2025-04-24 06:33] LABS: Alanine Aminotransferase 45 U/L (10-49); Albumin, Serum 3.4 gm/dL (3.4-4.8); Albumin/Globulin Ratio 1.6 (1.2-2.2); Alkaline Phosphatase 91 U/L (46-116); Anion Gap 10 (7-16); BUN/Creatinine Ratio 27 Ratio (12-20); Bilirubin,Total 0.6 mg/dL (0.3-1.2); Blood Urea Nitrogen 19 mg/dL (9-23); Calcium 8.5 mg/dL (8.3-10.6); Carbon Dioxide 31.2 mMol/L (20.0-31.0); Chloride 100 mMol/L (98-107); Creatinine (Component) 0.7 mg/dL (0.6-1.3); Globulin 2.1 gm/dL (2.3-3.5); Glucose 122 mg/dL (74-106); Magnesium 1.9 mg/dL (1.6-2.6); Osmolality,Calculated 284 (275-295); Phosphorous 1.3 mg/dL (2.4-5.1); Potassium 3.9 mMol/L (3.4-5.1); Sodium 141 mMol/L (136-145); Total Protein 5.5 gm/dL (5.7-8.2); eGFR > 60 See Note
--- NOTE | 2025-04-24 08:46 | PC.SS ---
Addendum entered by KAREEM Jo 04/24/25 16:29: Patient continues pending a bowel movement. Updated SNF staff patient will likely d/c to facility tomorrow. Addendum entered by KAREEM Jo 04/24/25 15:09: SS update: transport placed on will-call with [facility] dispatch [phone]. Addendum entered by KAREEM Jo 04/24/25 12:30: Updated [facility] staff Janessa. Addendum entered by KAREEM Jo 04/24/25 12:28: Tentative ETA with [facility] is 1630. Bedside RN Nikole updated. Addendum entered by KAREEM Jo 04/24/25 10:51: Bedside RNSidra updated and informs patient is pending Bowel movement/void. Addendum entered by KAREEM Jo 04/24/25 10:22: SS update: [facility] transportation reference number: [id number]. Pending ETA for transport. Addendum entered by KAREEM Jo 04/24/25 10:15: SS update: patient to be d/c back to [facility]. Notified Janessa at the SNF and patient's [facility] conservator Jayashree Man. Original Note: SS follow up: updated clinicals sent to [facility] via [facility].
[2025-04-24] MEDS: ASPIRIN EC 81 MG TABEC PO ×2 (09:08→20:06)
[2025-04-24] MEDS: NAPH,KPH MBDB 1 PACKET (1.5 GM) PO ×2 (09:08→20:06)
[2025-04-24] MEDS: SENNA TABLET 1 TAB PO (09:08)
[2025-04-24] MEDS: POLYETHYLENE GLYCOL 17 GM PACKET PO (09:08)
--- NOTE | 2025-04-24 13:54 | ESDS_ITS ---
<Statement entered by Bianca Lemus DO - 04/25/25 09:35> I, Bianca Lemus DO, attest that I was physically present for the suárez portions of the service and evaluated the patient with the resident and I reviewed and discussed the case with the resident and agree with the resident's findings and plans of care as documented above Discharge was delayed as patient has not had a bowel movement. Patient is otherwise stable for discharge back to SNF and cleared by ortho. Continue with aspirin 81mg PO BID for DVT ppx x 30days <Statement entered by James Montalvo MD - 04/24/25 16:05> I discussed with and supervised the electrical intern physician involved in the care of this patient. Patient assessment and plan was discussed with entire medicine team, including my attending. I agree with the assessment and plan as documented by electrical intern doctor. Patient care was discussed with my attending physician Dr. Allan Montalvo, PGY-2 Planned Discharge Date 04/24/25 DS: Providers Provider Date of admission: 04/19/25 21:53 Primary care physician: Eddi Paulson MD Admitting Provider: Ramos Greenfield MD Attending Provider on Admission: Bianca Lemus DO Consults: 04/19/25 21:29 Consult to Orthopedic Stat Comment: Consulting Provider: Zeeshan Brown 04/19/25 22:05 Consult to Cardiology Stat Comment: Consulting Provider: Getachew Menjivar 04/23/25 09:14 Referral Physical Therapy Routine Comment: Physician Instructions: Attending Provider on DC: Donna Ordonez MD Discharging Provider: Donna Ordonez MD DS: Diagnosis Problem List Completed Was Problem List Reviewed/Reconciled?: Yes Hospital Course Hospital Course Hospital course: The patient is a 84-year-old female with a previous medical history of asthma, dementia who was admitted to the hospital on 04/19/2025 after a ground-level fall. She is a resident of a SNF and usually ambulates using cane. In the ED she was hemodynamically stable, imaging showed left-sided hip fracture. Orthopedic surgeon Dr. Koehler was consulted. Patient underwent hip fracture repair with trochanteric nail placement on 04/23/2025. In the postoperative period, her good n was well-controlled, hemoglobin is stable, no sign of bleeding PT evaluated the patient and recommended SNF placement. Patient was seen and examined by the bedside and was medically cleared for discharge to SNF on 04/24/2025. Hospital diagnoses: #S/p trochanteric nail fixation 04/22/25 #Left hip fracture secondary to #Mechanical fall #Leukocytosis, resolved #Possible dementia #Cognitive deficit Discharge recommendations: - Follow-up with your PCP in 1 week - Take aspirin 81 mg two times a day for 30 days for DVT prophylaxis - Take Hydrocodone 5/acetaminophen 325 mg every 6 hours as needed for pain for 3 days - Stop taking potassium 8 mEq - Take the rest of the medications as prescribed - If your symptoms worsen, there are signs of bleeding from the wound, come to the ED or call 911 Plan of care discussed with attending Dr. Lemus, PGY-[address] Montalvo. Donna Orodnez MD, PGY 1. Time Spent with Patient Time attestation: Total time spent providing and/or coordinating discharge services: Time spent: Greater than 30 minutes Exam Vital Signs Temp Pulse Resp BP Pulse Ox O2 Del Method O2 Flow Rate 97.2 F 91 18 107/53 L 95 Room Air 2 04/24/25 12:00 04/24/25 12:04/24/25 12:04/24/25 12:04/24/25 12:04/24/25 12:04/22/25 21:44 Narrative Exam Gen: Well-developed and well-nourished. HEENT: NCAT, PERRLA, EOMI, MMM, anicteric conjunctivae. CVS: normal S1 and S2. RRR. No M/R/G. Resp: CTA B/L. No rhonchi, rales, crackles or wheezing. Abd: soft, non-tender, non-distended. BS+ in all 4 quadrants. MSK: Movements in left extremity is restricted. No edema or rash. Neuro: CN II-XII grossly intact. Movements in left extremity is restricted. Alert and oriented x1. Psych: appropriate mood and affect. Discharge Plan Plan Patient Disposition: Xfer Skilled Nsg Fac (SNF) Care Plan Goals: Discharge recommendations: - Follow-up with your PCP in 1 week - Take aspirin 81 mg two times a day for 30 days for DVT prophylaxis - Take Hydrocodone 5/acetaminophen 325 mg every 6 hours as needed for pain for 3 days - Stop taking potassium 8 mEq - Take the rest of the medications as prescribed - If your symptoms worsen, there are signs of bleeding from the wound, come to the ED or call 911 Prescriptions/Referrals Prescriptions/Med Rec: New hydrocodone-acetaminophen 5-325 mg Tablet 1 tab PO Q6HR MDD 4 tablets PRN (Reason: Pain Scale 4-6 (Moderate) 3 Days Qty: 12 0RF Rx Instructions: Take one tablet every hours as needed for pain aspirin 81 mg Tablet,Delayed Release (Dr/Ec) 81 mg PO BID 30 Days Qty: 60 0RF Continued Centrum Silver Women 8 mg iron-400 mcg-300 mcg Tablet 1 tab PO QDAY calcium carbonate-vitamin D3 [Caltrate with Vitamin D3] 600 mg(1,500mg) -800 unit Tablet 1 tab PO QDAY albuterol sulfate 90 mcg/actuation Hfa Aerosol Inhaler 1 inh INHALATION QID PRN (Reason: wheeze/sob) acetaminophen 325 mg tablet 650 mg PO Q6H PRN (Reason: fever or pain) Rx Instructions: for mild pain; Fever >101 cetirizine 5 mg tablet 5 mg PO QDAY docusate sodium 100 mg capsule 100 mg PO QDAY Rx Instructions: Hold for loose stool bisacodyl [Dulcolax (bisacodyl)] 10 mg suppository [address] Q24H PRN (Reason: constipation) Rx Instructions: if MOM is ineffective and no BM for 8 hours Fleet Enema 19-7 gram/118 mL enema [address] QDAY PRN (Reason: constipation) Rx Instructions: if MOM and Dulcolax Supp are ineffective and no bowel movement in 8 hours. If no results from MOM, Dulcolax Suppository, and Enema CALL magnesium hydroxide [Milk of Magnesia] 400 mg/5 mL suspension 30 ml PO PRN PRN (Reason: constipation) Rx Instructions: if no bowel movement in 3 days multivitamin with iron-mineral Tablet 1 tab PO QDAY Discontinued potassium chloride 8 mEq capsule, extended release 8 meq PO QDAY Qty: 14 0RF Referrals: Eddi Paulson MD [Primary Care Provider] - Patient/Caregiver Discharge Instructions Education Materials: After a Hip Fracture: Common Questions, Fx Hip Surg Dc Print Language: Bulgarian Stand Alone Forms: Lucía Award Info., Patient Portal Info Letter Discharge Order Discharge Orders: Discharge (Routine); Ordered 04/24/25 Ordered By: Donna Ordonez Quality Discharge Quality Measures VTE prophylaxis
[2025-04-24] MEDS: Milk Of Magnesia Susp 30 ML UDC PO (16:29)
[2025-04-24] MEDS: LACTULOSE SYRUP 20 GM/30 ML UDC 10 GM PO (18:17)
[2025-04-24] MEDS: ACETAMINOPHEN 325 MG TABLET 650 MG PO (18:24)
[2025-04-25] VITALS (8 sets, daily range): BP systolic 107–132; BP diastolic 55–86; PULSE 70–95; RESP 16–99; TEMP 36.3–36.9; O2SAT 93–99
[2025-04-25] MEDS: ACETAMINOPHEN 325 MG TABLET 650 MG PO ×2 (04:47→13:41)
[2025-04-25 05:55] LABS: Basophils % (Auto) 0 % (0-2.5); Eosinophils # (Auto) 0.5 Thou/mm3 (0.0-0.5); Eosinophils % (Auto) 5 % (0-10); Hematocrit 26.2 % (36.0-46.0); Hemoglobin 8.9 g/dL (12.0-16.0); Immature Granulocytes % (Auto) 0 % (0-0); Immature Granulocytes Auto 0.03 Thou/mm3 (0.00-0.00); Lymphocytes # (Auto) 2.1 Thou/mm3 (1.0-4.8); Lymphocytes % (Auto) 23 % (10-50); Mean Corpuscular Hemoglobin 29.4 pg (25.0-35.0); Mean Corpuscular Volume 87 fL (80-100); Monocytes % (Auto) 11 % (0-12); Neutrophils # (Auto) 5.4 Thou/mm3 (1.8-7.7); Neutrophils % (Auto) 60 % (37-80); Nucleated Red Blood Cell % 0 /100 WBC (0); Platelet Count 252 Thou/mm3 (140-440); RDW Standard Deviation 43.4 fL (36.4-46.3); Red Blood Count 3.03 Miln/mm3 (4.00-5.20); White Blood Count 8.9 Thou/mm3 (3.6-11.0)
[2025-04-25 06:22] LABS: Alanine Aminotransferase 30 U/L (10-49); Albumin, Serum 3.3 gm/dL (3.4-4.8); Albumin/Globulin Ratio 1.6 (1.2-2.2); Alkaline Phosphatase 91 U/L (46-116); Anion Gap 5 (7-16); Aspartate Amino Transferase 22 U/L (0-34); BUN/Creatinine Ratio 27 Ratio (12-20); Bilirubin,Total 0.9 mg/dL (0.3-1.2); Blood Urea Nitrogen 19 mg/dL (9-23); Calcium 8.3 mg/dL (8.3-10.6); Calcium (Corrected) 8.9 mg/dL (8.5-10.1); Carbon Dioxide 32.3 mMol/L (20.0-31.0); Chloride 101 mMol/L (98-107); Creatinine (Component) 0.7 mg/dL (0.6-1.3); Globulin 2.1 gm/dL (2.3-3.5); Glucose 114 mg/dL (74-106); Osmolality,Calculated 278 (275-295); Phosphorous 2.3 mg/dL (2.4-5.1); Sodium 138 mMol/L (136-145); Total Protein 5.4 gm/dL (5.7-8.2); eGFR > 60 See Note
[2025-04-25] MEDS: POLYETHYLENE GLYCOL 17 GM PACKET PO ×2 (08:56→16:37)
[2025-04-25] MEDS: ASPIRIN EC 81 MG TABEC PO ×2 (08:56→21:02)
[2025-04-25] MEDS: NAPH,KPH MBDB 1 PACKET (1.5 GM) PO ×2 (08:56→21:01)
[2025-04-25] MEDS: SENNA TABLET 1 TAB PO ×2 (08:56→09:30)
--- NOTE | 2025-04-25 09:13 | PC.SS ---
Addendum entered by Claudia Alfaro 04/25/25 14:53: SS followed up with physician team and patient still has not had a b.m. They have provided all necessary to assist with b.m. Patient refusing laxatives. D/c pending Original Note: Follow up note: Patient d/c held yesterday due to not having a b.m. SS spoke to physician team who states patient has had a b.m. today and can d/c this morning. SS spoke to floor nurse and she states patient has not had a b.m. since she arrived. SS updated physician team. D/c pending a b.m. D/c plan remains to d/c to [facility].
[2025-04-25] MEDS: Milk Of Magnesia Susp 30 ML UDC PO (09:30)
[2025-04-25] MEDS: MORPHINE SULF INJ 10 MG/ML VIAL IVP ×2 (09:30→19:51)
[2025-04-25] MEDS: LACTULOSE SYRUP 20 GM/30 ML UDC PO (11:06)
[2025-04-25] MEDS: NALOXEGOL OXALATE 25 MG TABLET (NON-FORMULARY) PO (13:36)
--- NOTE | 2025-04-25 15:28 | PD.RESPRO ---
Documentation for date of: 04/25/25 Subjective Subjective Interval history: Patient was seen and examined by the bedside. Patient reports some pain in the hip. She still continues to be constipated. She received miralax, milk of magnesia, senna, naloxegol, lactulose. She declined enema. Will continue with laxatives. She would need to have a bowel movement before discharge to SNF. Exam Vital Signs Temp Pulse Resp BP Pulse Ox O2 Del Method O2 Flow Rate 98.2 F 74 18 107/55 L 96 Room Air 2 04/25/25 12:00 04/25/25 12:00 04/25/25 12:04/25/25 12:04/25/25 12:04/25/25 12:04/24/25 20:00 Narrative Exam Gen: Well-developed and well-nourished. HEENT: NCAT, PERRLA, EOMI, MMM, anicteric conjunctivae. CVS: normal S1 and S2. RRR. No M/R/G. Resp: CTA B/L. No rhonchi, rales, crackles or wheezing. Abd: soft, non-tender, non-distended. BS+ in all 4 quadrants. MSK: Movements in left extremity is restricted. No edema or rash. Neuro: CN II-XII grossly intact. Movements in left extremity is restricted. Alert and oriented x1. Psych: appropriate mood and affect. Objective Labs 04/26/25 08:22 04/26/25 08:22 Labs: Laboratory Results - last 24 hr 04/25/25 05:29 WBC 8.9 RBC 3.03 L Hgb 8.9 L Hct 26.2 L MCV 87 MCH 29.4 MCHC 34.0 RDW Std Deviation 43.4 Plt Count 252 D Neut % (Auto) 60 Lymph % (Auto) 23 [place] % (Auto) 11 Eos % (Auto) 5 Baso % (Auto) 0 Neut # (Auto) 5.4 Lymph # (Auto) 2.1 [place] # (Auto) 1.0 H Eos # (Auto) 0.5 Baso # (Auto) 0.0 Immature Gran # (Auto) 0.03 H Absolute Nucleated RBC 0.00 Immature Gran % 0 Nucleated RBC % 0 Sodium 138 Potassium 4.0 Chloride 101 Carbon Dioxide 32.3 H Anion Gap 5 L BUN 19 Creatinine 0.7 Estim Creat Clear Calc 57.0 L eGFR > 60 BUN/Creatinine Ratio 27 H Glucose 114 H Calculated Osmolality 278 Calcium 8.3 Corrected Calcium 8.9 Phosphorus 2.3 L Magnesium 2.0 Total Bilirubin 0.9 AST 22 ALT 30 Alkaline Phosphatase 91 Total Protein 5.4 L Albumin 3.3 L Globulin 2.1 L Albumin/Globulin Ratio 1.6 Quality Measures Quality Measures VTE prophylaxis Advance care planning discussed with:: other Assessment & Plan Assessment Current Active Medications: Generic Name Dose Route Start Last Admin Trade Name Freq PRN Reason Stop Dose Admin Acetaminophen 650 mg 04/20/25 11:03 04/25/25 13:41 Acetaminophen 325 Mg Tablet PO 05/19/25 21:52 650 mg Q6H PRN Administration pain and Fever >100.4 Albuterol/Ipratropium 3 ml 04/19/25 21:53 Albuterol/Ipratropium (Duoneb) Rt [place] 3 Ml Nebu INH 05/19/25 22:59 Q4HRRT PRN SOB or wheezing Aspirin 81 mg 04/23/25 21:00 04/25/25 08:56 Aspirin Ec 81 Mg Tabec PO 05/23/25 20:59 81 mg BID KATY Administration Bisacodyl 10 mg 04/25/25 15:26 Bisacodyl 10 Mg Supp UT 04/25/25 15:27 X1 ONE Protocol Morphine Sulfate 1 mg 04/25/25 09:09 04/25/25 09:30 Morphine Sulf Inj 10 Mg/Ml Vial IVP 04/30/25 09:08 1 mg Q4HR PRN Administration PAIN SCALE 4-10(Mod-Sev Ondansetron HCl 4 mg 04/19/25 21:53 Ondansetron Inj 2 Mg/Ml Inj 2 Ml IVP 05/19/25 21:52 Q6H PRN NAUSEA OR VOMITING Protocol Polyethylene Glycol 17 gm 04/21/25 09:00 04/25/25 08:56 Polyethylene Glycol 17 Gm Packet PO 05/21/25 08:59 17 gm QDAY KATY Administration Potassium Phos/Sodium Phos 1 packet 04/24/25 09:00 04/25/25 08:56 Naph,Kph Mbdb 1 Packet (1.5 Gm) PO 05/24/25 08:59 1 packet BID KATY Administration Sennosides 1 tab 04/25/25 09:15 04/25/25 09:30 Senna Tablet PO 05/25/25 09:14 1 tab QDAY KATY Administration Protocol Plan The patient is a 84-year-old female with past medical history of asthma and possible dementia was admitted to the hospital on 04/19/2025 for left hip fracture. #S/p trochanteric nail fixation 04/22/25 #Left hip fracture secondary to #Mechanical fall Patient had a fall today and landed on her left hip resulting in left hip fracture Orthopedic surgeon was consulted by the ED provider and wanted the patient to be admitted for possible surgery. Imaging included x-ray of the femur and x-ray of the head which both showed left hip fracture There are no bruises and patient's legs does seem shorter than the right, but pedal pulses were present and no signs of ischemia PTT and PT are normal. Plan: -Pain control manage 1 with Tylenol 650, [place] 5, and morphine 2 mg -Physical therapy -Cardiology consulted, patient cleared for the surgery -Orthopedic surgeon is following, appreciate recs #Constipation Combination of opium induced and immobilization. Plan: - miralax - senna - milk of mag - lactulose - naloxegol x1 #Leukocytosis, resolved WBC 18.9 on admission likely reactive No fevers and no signs of infection Plan: -Will continue to monitor. #Possible dementia #Cognitive deficit Patient appears to be confused. According to the SNF, she is confused at the baseline. Plan: - will continue to monitor Disposition: medsurg Diet: regular diet GI prophylaxis: not indicated DVT prophylaxis: aspirin 81 mg BID Code: Full code Plan of care discussed with attending Dr. Parker and PGY-2 Dr. Montalvo. Donna Ordonez MD, PGY 1. Attending Provider Attestation/Addendum I attest that I was physically present for the evaluation, physical examination, lab and imaging review of the patient with the residents. I discussed the case with the residents and agree with the findings and plans of care as documented above. At bedside today, patient states she is feeling well and appears comfortable. Saturating well on room air. Patient is medically cleared for discharge to SNF, awaiting bowel movement. Dory Parker MD
[2025-04-25] MEDS: bisacodyL 5 MG TABEC 15 MG PO (16:59)
[2025-04-26] VITALS: BP 126/67; PULSE 102; RESP 17; TEMP 36.8; O2SAT 94
[2025-04-26] MEDS: MORPHINE SULF INJ 10 MG/ML VIAL IVP (02:59)
[2025-04-26 04:00] VITALS: BP 124/61; PULSE 80; RESP 17; TEMP 36.5; O2SAT 93
[2025-04-26 07:49] VITALS: PULSE 97; RESP 18; RESP 94; O2SAT 94
[2025-04-26 08:00] VITALS: BP 97/61; PULSE 90; RESP 18; TEMP 36.1; O2SAT 94
[2025-04-26] MEDS: ACETAMINOPHEN 325 MG TABLET 650 MG PO (08:41)
[2025-04-26] MEDS: POLYETHYLENE GLYCOL 17 GM PACKET PO (08:41)
[2025-04-26] MEDS: NAPH,KPH MBDB 1 PACKET (1.5 GM) PO (08:41)
[2025-04-26] MEDS: ASPIRIN EC 81 MG TABEC PO (08:41)
[2025-04-26] MEDS: SENNA TABLET 1 TAB PO (08:42)
[2025-04-26] MEDS: LACTULOSE SYRUP 20 GM/30 ML UDC PO (08:52)
--- NOTE | 2025-04-26 09:08 | XR_ITS ---
Examination: Abdomen AP single view Technique: AP portable supine abdomen, single view Exam date and time: April 26, 2025 0944 hrs. Indications: Constipation beginning 2 days ago. Findings: Large amounts of stool in the rectosigmoid No obstruction No free air Pleural parenchymal disease left base Impression: Large amounts of stool in the rectosigmoid
[2025-04-26 09:35] LABS: Basophils % (Auto) 0 % (0-2.5); Eosinophils # (Auto) 0.4 Thou/mm3 (0.0-0.5); Eosinophils % (Auto) 5 % (0-10); Hematocrit 28.5 % (36.0-46.0); Hemoglobin 9.5 g/dL (12.0-16.0); Immature Granulocytes % (Auto) 1 % (0-0); Immature Granulocytes Auto 0.05 Thou/mm3 (0.00-0.00); Lymphocytes # (Auto) 1.3 Thou/mm3 (1.0-4.8); Lymphocytes % (Auto) 15 % (10-50); Mean Corpuscular HGB Conc 33.3 g/dl (31.0-37.0); Mean Corpuscular Hemoglobin 29.1 pg (25.0-35.0); Mean Corpuscular Volume 87 fL (80-100); Monocytes # (Auto) 0.7 Thou/mm3 (0.0-0.8); Monocytes % (Auto) 8 % (0-12); Neutrophils % (Auto) 71 % (37-80); Nucleated Red Blood Cell % 0 /100 WBC (0); Platelet Count 292 Thou/mm3 (140-440); RDW Standard Deviation 44.2 fL (36.4-46.3); Red Blood Count 3.26 Miln/mm3 (4.00-5.20); White Blood Count 8.4 Thou/mm3 (3.6-11.0)
[2025-04-26 09:58] LABS: Alanine Aminotransferase 26 U/L (10-49); Albumin, Serum 3.3 gm/dL (3.4-4.8); Albumin/Globulin Ratio 1.6 (1.2-2.2); Alkaline Phosphatase 102 U/L (46-116); Anion Gap 8 (7-16); Aspartate Amino Transferase 25 U/L (0-34); BUN/Creatinine Ratio 24 Ratio (12-20); Blood Urea Nitrogen 17 mg/dL (9-23); Calcium 8.4 mg/dL (8.3-10.6); Carbon Dioxide 30.3 mMol/L (20.0-31.0); Chloride 101 mMol/L (98-107); Creatinine (Component) 0.7 mg/dL (0.6-1.3); Globulin 2.1 gm/dL (2.3-3.5); Glucose 112 mg/dL (74-106); Osmolality,Calculated 280 (275-295); Sodium 139 mMol/L (136-145); Total Protein 5.4 gm/dL (5.7-8.2); eGFR > 60 See Note
[2025-04-26 11:42] VITALS: BMI 11.0; BMI 12.0
[2025-04-26 12:00] VITALS: BP 105/60; PULSE 90; RESP 18; TEMP 36.7; O2SAT 96
--- NOTE | 2025-04-26 12:13 | PC.SS ---
Chart accessed to provide [facility]-Janessa with room number. Janessa to conduct bedside visit today.
--- NOTE | 2025-04-26 13:34 | PC.SS ---
Addendum entered by Lary Dumont 04/26/25 16:06: SS follow up note; SS set up transportation with [facility] for 1700. SS notified Patient's nurse Geovanna and Janessa from [facility]. Addendum entered by Lary Dumont 04/26/25 13:42: [facility] left [facility]. Patient will be returning to [facility] today. pending transportation ETA. Original Note: SS follow up note; [place] [facility] [id number]
--- NOTE | 2025-04-26 15:36 | ESDS_ITS ---
Planned Discharge Date 04/26/25 DS: Providers Provider Date of admission: 04/19/25 21:53 Primary care physician: Eddi Paulson MD Admitting Provider: Ramos Greenfield MD Attending Provider on Admission: Bianca Lemus DO Consults: 04/19/25 21:29 Consult to Orthopedic Stat Comment: Consulting Provider: Zeeshan Brown 04/19/25 22:05 Consult to Cardiology Stat Comment: Consulting Provider: Getachew Menjivar 04/23/25 09:14 Referral Physical Therapy Routine Comment: Physician Instructions: Attending Provider on DC: James Montalvo MD Discharging Provider: James Montalvo MD DS: Diagnosis Problem List Completed Was Problem List Reviewed/Reconciled?: Yes Hospital Course Hospital Course Hospital course: The patient is a 84-year-old female with a previous medical history of asthma, dementia who was admitted to the hospital on 04/19/2025 after a ground-level fall. She is a resident of a SNF and usually ambulates using cane. In the ED she was hemodynamically stable, imaging showed left-sided hip fracture. Orthopedic surgeon Dr. Koehler was consulted. Patient underwent hip fracture repair with trochanteric nail placement on 04/23/2025. In the postoperative period, her pain was well- controlled, hemoglobin is stable, no sign of bleeding PT evaluated the patient and recommended SNF placement. Patient was seen and examined by the bedside and was medically cleared for discharge to SNF on 04/24/2025. Hospital diagnoses: #S/p trochanteric nail fixation 04/22/25 #Left hip fracture secondary to #Mechanical fall #Leukocytosis, resolved #Possible dementia #Cognitive deficit Discharge recommendations: - Follow-up with your PCP in 1 week - Take aspirin 81 mg two times a day for 30 days for DVT prophylaxis - Take Hydrocodone 5/acetaminophen 325 mg every 6 hours as needed for pain for 3 days - Stop taking potassium 8 mEq - Take the rest of the medications as prescribed - If your symptoms worsen, there are signs of bleeding from the wound, come to the ED or call 911. Discharge summary was reviewed with my attending Dr. Keith Montalvo, PGY-2 Time Spent with Patient Time attestation: Total time spent providing and/or coordinating discharge services: Time spent: Greater than 30 minutes Exam Vital Signs Temp Pulse Resp BP Pulse Ox O2 Del Method O2 Flow Rate 98.1 F 90 18 105/60 96 Room Air 2 04/26/25 12:00 04/26/25 12:04/26/25 12:04/26/25 12:04/26/25 12:04/26/25 12:04/24/25 20:00 Narrative Exam Gen: Well-developed and well-nourished. HEENT: NCAT, PERRLA, EOMI, MMM, anicteric conjunctivae. CVS: normal S1 and S2. RRR. No M/R/G. Resp: CTA B/L. No rhonchi, rales, crackles or wheezing. Abd: soft, non-tender, non-distended. BS+ in all 4 quadrants. MSK: Movements in left extremity is restricted. No edema or rash. Neuro: CN II-XII grossly intact. Movements in left extremity is restricted. Alert and oriented x1. Psych: appropriate mood and affect. Discharge Plan Plan Patient Disposition: Xfer Skilled Nsg Fac (SNF) Care Plan Goals: Discharge recommendations: - Follow-up with your PCP in 1 week - Take aspirin 81 mg two times a day for 30 days for DVT prophylaxis - Take Hydrocodone 5/acetaminophen 325 mg every 6 hours as needed for pain for 3 days - Stop taking potassium 8 mEq - Take the rest of the medications as prescribed - If your symptoms worsen, there are signs of bleeding from the wound, come to the ED or call 911 Prescriptions/Referrals Prescriptions/Med Rec: New hydrocodone-acetaminophen 5-325 mg Tablet 1 tab PO Q6HR MDD 4 tablets PRN (Reason: Pain Scale 4-6 (Moderate) 3 Days Qty: 12 0RF Rx Instructions: Take one tablet every hours as needed for pain aspirin 81 mg Tablet,Delayed Release (Dr/Ec) 81 mg PO BID 30 Days Qty: 60 0RF Continued Centrum Silver Women 8 mg iron-400 mcg-300 mcg Tablet 1 tab PO QDAY calcium carbonate-vitamin D3 [Caltrate with Vitamin D3] 600 mg(1,500mg) -800 unit Tablet 1 tab PO QDAY albuterol sulfate 90 mcg/actuation Hfa Aerosol Inhaler 1 inh INHALATION QID PRN (Reason: wheeze/sob) acetaminophen 325 mg tablet 650 mg PO Q6H PRN (Reason: fever or pain) Rx Instructions: for mild pain; Fever >101 cetirizine 5 mg tablet 5 mg PO QDAY docusate sodium 100 mg capsule 100 mg PO QDAY Rx Instructions: Hold for loose stool bisacodyl [Dulcolax (bisacodyl)] 10 mg suppository 10 mg NC Q24H PRN (Reason: constipation) Rx Instructions: if MOM is ineffective and no BM for 8 hours Fleet Enema 19-7 gram/118 mL enema 118 ml NC QDAY PRN (Reason: constipation) Rx Instructions: if MOM and Dulcolax Supp are ineffective and no bowel movement in 8 hours. If no results from MOM, Dulcolax Suppository, and Enema CALL magnesium hydroxide [Milk of Magnesia] 400 mg/5 mL suspension 30 ml PO PRN PRN (Reason: constipation) Rx Instructions: if no bowel movement in 3 days multivitamin with iron-mineral Tablet 1 tab PO QDAY Discontinued potassium chloride 8 mEq capsule, extended release 8 meq PO QDAY Qty: 14 0RF Referrals: Eddi Paulson MD [Primary Care Provider] - Patient/Caregiver Discharge Instructions Education Materials: After a Hip Fracture: Common Questions, Fx Hip Surg Dc Print Language: Tristanian Stand Alone Forms: Lucía Award Info., Patient Portal Info Letter Discharge Order Discharge Orders: Discharge (Routine); Ordered 04/26/25 Ordered By: Isidoro Ramos Quality Discharge Quality Measures VTE prophylaxis Attestestation Attestation I attest that I was physically present for the evaluation, physical examination, lab and imaging review of the patient with the residents. I discussed the case with the residents and agree with the findings and plans of care as documented above. Dory Parker MD
[2025-04-26 16:00] VITALS: BP 107/56; PULSE 92; RESP 18; TEMP 36.7; O2SAT 94
--- NOTE | 2025-04-26 16:24 | PC.NURSE ---
gave report no jess at [facility]
--- NOTE | 2025-04-26 16:52 | PC.NURSE ---
Patients rings were not found. I gave patients close friend patients satisfactions number Talon Ang. He will be calling Talon on monday. Belongings list was signed and I initialed rings not found.
== END 2025-04-26 17:00 | disposition skilled nursing facility (03) | DRG 482 ==
LOC: SERX 20:20 → SERHOLD 22:12 → S3SX 04-21 06:26
PROVIDERS: Nurse Practitioner Family; Orthopaedic Surgery; Admitting Provider Student in an Organized Health Care Education/Training Program; Emergency Provider Emergency Medicine; PCP Family Medicine; Visit Provider Internal Medicine
PROC: 0QS704Z Reposition Left Upper Femur with Internal Fixation Device, Open Approach (ICD-10-PCS; CPT 27245; principal; 2025-04-22 14:45)
DX: S72.142A Displaced intertrochanteric fracture of left femur, initial encounter for closed fracture (principal); F03.90 Unspecified dementia, unspecified severity, without behavioral disturbance, psychotic disturbance, mood disturbance, and anxiety; J45.909 Unspecified asthma, uncomplicated; D72.829 Elevated white blood cell count, unspecified; Y93.01 Activity, walking, marching and hiking; W18.30XA Fall on same level, unspecified, initial encounter; I10 Essential (primary) hypertension; K59.00 Constipation, unspecified; Z88.1 Allergy status to other antibiotic agents
CPT/HCPCS: 36415; 73502; 73503; 73552; 74018; 76000; 80053; 81001; 83735; 84100; 85025; 85610; 85730; 86850; 86900; 86901; 86923; 87081; 93005; 93306; 96374; 96375; 96376; 97162; 99285; A4217; A4649; C1713; C1776; J0131; J0690; J1100; J1580; J2270; J2371; J2405; J2704; J3010; J3490; J7030; J7040; A9270